=== PATIENT | female | born 1965 | race Caucasian/White ===

== ENCOUNTER 2018-02-16 06:52 | Day surgery (SDC) | payer OTHER ==
[2018-02-16] MEDS ORDERED: NS 1,000 ML IV (07:00)
[2018-02-16] MEDS ORDERED: PROPOFOL 200 MG/20 ML VIAL As Ordered ×3 (08:11)
[2018-02-16] MEDS ORDERED: LIDOCAINE 2% INJ 100 MG/5 ML SDV (FOR ANES.) As Ordered ×2 (08:11)
== END 2018-02-16 08:38 | disposition home or self-care (01) ==
LOC: M OPP 06:52
DX: Z12.11 Encounter for screening for malignant neoplasm of colon (principal); K64.0 First degree hemorrhoids; K57.30 Diverticulosis of large intestine without perforation or abscess without bleeding; Z98.0 Intestinal bypass and anastomosis status; I10 Essential (primary) hypertension; E11.9 Type 2 diabetes mellitus without complications; K57.32 Diverticulitis of large intestine without perforation or abscess without bleeding; F41.9 Anxiety disorder, unspecified; J45.909 Unspecified asthma, uncomplicated; R06.83 Snoring; Z87.19 Personal history of other diseases of the digestive system; Z79.84 Long term (current) use of oral hypoglycemic drugs; Z79.899 Other long term (current) drug therapy
CPT/HCPCS: G0121

== ENCOUNTER → 2019-01-03 | Outpatient (REF) | payer OTHER ==
[~2019-01-03] MED LIST: /THIA10TA OR; ALBU83IN INH; ASPI81TA45 OR; ATEN100T PO; GLUC500T OR; GLYB1TAB29 OR; JANU100T PO; KEFL500C OR; LEXA1TAB PO; LOPR50TA OR; LOSA50TA5 PO; METF10004 PO; PRIN10TA OR; TYLENOL PM; XANA0.5T PO; ZOCO20TA OR
[2019-01-03 11:16] LABS: BASO # 0.1 10^3/uL (0.0-0.2); BASO % 0.7 % (0.0-1.0); EOS # 0.1 10^3/uL (0.0-0.50); HEMATOCRIT 42.1 % (36.0-47.0); HEMOGLOBIN 13.9 g/dl (12.0-15.5); LYMPH # 2.2 10^3/uL (1.5-4.5); LYMPH % 23.6 % (24.0-44.0); MEAN CORPUSCULAR HEMOGLOBIN 33.3 pg (27.0-33.0); MONO # 0.4 10^3/uL (0.0-0.8); MONO % 4.2 % (0.0-5.0); NEUTROPHILS # 6.5 10^3/uL (1.8-7.7); NEUTROPHILS % 70.1 % (36.0-66.0); PLATELET COUNT, AUTOMATED 185 10^3/uL (150-450); RED BLOOD COUNT 4.17 10^6/uL (4.00-5.40); WHITE BLOOD COUNT 9.2 10^3/uL (4.0-10.0)
[2019-01-03 11:44] LABS: ALBUMIN 3.2 GM/DL (3.2-5.2); ALT/SGPT 53 U/L (12-78); BILIRUBIN,TOTAL 0.5 MG/DL (0.2-1.0); BLOOD UREA NITROGEN 23 MG/DL (7-18); CALCIUM LEVEL 9.6 MG/DL (8.5-10.1); CARBON DIOXIDE LEVEL 30 MEQ/L (21-32); CHLORIDE LEVEL 92 MEQ/L (98-107); CHOLESTEROL LEVEL 186 MG/DL (<200); CHOLESTEROL RISK RATIO 3.381 (<5); CREATININE FOR GFR 0.93 MG/DL (0.55-1.30); GLOMERULAR FILTRATION RATE > 60.0 (>51); GLUCOSE, FASTING 301 MG/DL (70-100); HDL CHOLESTEROL 55 MG/DL (>40); LDL CHOLESTEROL 100 MG/DL (<100); NON-HDL-C 131 MG/DL; POTASSIUM SERUM 4.2 MEQ/L (3.5-5.1); SODIUM LEVEL 134 MEQ/L (136-145); TOTAL PROTEIN 7.1 GM/DL (6.4-8.2); TRIGLYCERIDES LEVEL 155 MG/DL (<150)
[2019-01-03 12:00] LABS: MALB URINE SIEMENS 20.5 MG/L; MAU/CREAT RATIO 8.3 MCG/MG (0.0-30.0)
[2019-01-03 12:29] LABS: HEMOGLOBIN A1c 10.4 %
== END ==
LOC: M SFHCLERA 08:38
PROVIDERS: ATTEND Nurse Practitioner Family
DX: E11.9 Type 2 diabetes mellitus without complications (principal); I10 Essential (primary) hypertension; Z13.220 Encounter for screening for lipoid disorders

== ENCOUNTER → 2020-08-25 | Outpatient (CLI) | payer SELFPAY | LOC: M LABSMTC 08:17 | PROVIDERS: ATTEND Pediatrics | DX: Z20.828 Contact with and (suspected) exposure to other viral communicable diseases (principal) ==

== ENCOUNTER → 2020-09-20 | Outpatient (CLI) | payer OTHER ==
[2020-09-20 16:30] LABS: BASO # 0.1 10^3/uL (0.0-0.2); BASO % 0.5 % (0.0-1.0); EOS # 0.3 10^3/uL (0.0-0.5); EOS % 2.6 % (0.0-3.0); HEMATOCRIT 37.2 % (36.0-47.0); HEMOGLOBIN 11.7 g/dl (12.0-15.5); LYMPH # 2.8 10^3/uL (1.5-5.0); LYMPH % 24.6 % (24.0-44.0); MEAN CORPUSCULAR HEMOGLOBIN 30.5 pg (27.0-33.0); MEAN CORPUSCULAR HGB CONC 31.5 g/dl (32.0-36.5); MEAN CORPUSCULAR VOLUME 97.1 fl (80.0-96.0); MONO # 0.4 10^3/uL (0.0-0.8); MONO % 3.6 % (0.0-5.0); NEUTROPHILS # 7.8 10^3/uL (1.5-8.5); NEUTROPHILS % 67.8 % (36.0-66.0); PLATELET COUNT, AUTOMATED 269 10^3/uL (150-450); RED BLOOD COUNT 3.83 10^6/uL (4.00-5.40); WHITE BLOOD COUNT 11.5 10^3/uL (4.0-10.0)
[2020-09-20 16:48] LABS: HEMOGLOBIN A1c 8.2 %
[2020-09-20 17:08] LABS: CALCIUM LEVEL 9.2 MG/DL (8.5-10.1); CHOLESTEROL RISK RATIO 3.977 (<5); CREATININE FOR GFR 1.42 MG/DL (0.55-1.30); GLOMERULAR FILTRATION RATE 41.2 (>51); POTASSIUM SERUM 3.9 MEQ/L (3.5-5.1)
[2020-09-20 17:25] LABS: AMPHETAMINES URINE REFLEX NEGATIVE (NEGATIVE); BARBITURATES URINE REFLEX NEGATIVE (NEGATIVE); CANNABINOIDS URINE REFLEX NEGATIVE (NEGATIVE); COCAINE METABOLITE URINE REFLE NEGATIVE (NEGATIVE); MALB URINE SIEMENS 27.4 MG/L; MAU/CREAT RATIO 11.4 MCG/MG (0.0-30.0); METHADONE URINE REFLEX NEGATIVE (NEGATIVE); OPIATES URINE REFLEX NEGATIVE (NEGATIVE); PHENCYCLIDINE URINE REFLEX NEGATIVE (NEGATIVE)
[2020-09-20 18:33] LABS: BENZODIAZEPINES URINE REFLEX PENDING CONFIRMATION (NEGATIVE)
[2020-09-24 23:16] LABS: Benzodiazepines Positive (.); GC OH-Alprazola 714 ng/mL (Cutoff=300); OH-Alprazolam Positive (.)
== END ==
LOC: M LAB 15:01
PROVIDERS: ATTEND Family Medicine
DX: E11.9 Type 2 diabetes mellitus without complications (principal)
CPT/HCPCS: 36415; 80048; 80061; 80307; 82043; 83036; 85025; G0480

== ENCOUNTER → 2020-09-20 | Outpatient (CLI) | payer OTHER | LOC: M LAB 15:06 | PROVIDERS: ATTEND Nurse Practitioner Family | DX: G47.00 Insomnia, unspecified (principal) ==

== ENCOUNTER → 2020-12-23 | Outpatient (REF) | payer OTHER ==
[~2020-12-23] MED LIST changes: +ALPR0.5T3 PO; +ATEN50TA2 PO; +CETI-24 PO; +CLIN150C15 PO; +COLA100C5 PO; +GLYB5TAB6 PO; +LOSA100T8 PO; +METF500T13 PO; +MONT10TA10 PO; +PERC5TAB12 PO; +STEG15TA PO
== END ==
LOC: M SFHCLERA 10:15
PROVIDERS: ATTEND Nurse Practitioner Family
DX: L02.92 Furuncle, unspecified (principal)

== ENCOUNTER 2021-01-01 13:33 | Emergency (ER) | payer OTHER ==
[~2021-01-01] VITALS: Ht 157.5 cm; Wt 75.0 kg
[~2021-01-01 13:33] MED LIST changes: -ALPR0.5T3 PO; -ATEN50TA2 PO; -CETI-24 PO; -CLIN150C15 PO; -COLA100C5 PO; -GLYB5TAB6 PO; -LOSA100T8 PO; -METF500T13 PO; -MONT10TA10 PO; -PERC5TAB12 PO; -STEG15TA PO
[2021-01-01] MEDS ORDERED: IBUPROFEN 800 MG TAB PO ONE (14:20)
[2021-01-01] MEDS ORDERED: ACETAMINOPHEN 325 MG TAB PO ONE (14:20)
--- NOTE | 2021-01-01 14:40 | REP ---
INDICATION: low back pain after fall r/o compression fx. COMPARISON: None. TECHNIQUE: FIVE VIEWS FINDINGS: Five views of the lumbosacral spine show no acute fracture, dislocation or subluxation. The intervertebral disc spaces are symmetric and well maintained. There is no spondylolysis or spondylolisthesis. The pedicles are intact bilaterally and there is no destructive osseous lesion. THERE IS A GRADE 1 SUPERIOR ENDPLATE COMPRESSION OF T11 IMPRESSION: Unremarkable lumbosacral spine series. Grade 1 superior endplate compression deformity T11 the age of which cannot be determined by this exam. <Electronically signed by Silvio Cifuentes > 01/01/21 [id number]
[2021-01-01] MEDS ORDERED: oxyCODONE 5MG TAB PO ONE (15:05)
[2021-01-01] MEDS ORDERED: GLYB5TAB6 PO (15:50)
[2021-01-01] MEDS ORDERED: ALPR0.5T3 PO (15:50)
[2021-01-01] MEDS ORDERED: ATEN50TA2 PO (15:50)
[2021-01-01] MEDS ORDERED: METF500T13 PO (15:50)
[2021-01-01] MEDS ORDERED: LOSA100T8 PO (15:50)
[2021-01-01] MEDS ORDERED: CETI-24 PO (15:50)
[2021-01-01] MEDS ORDERED: MONT10TA10 PO (15:50)
[2021-01-01] MEDS ORDERED: LEXA1TAB PO (15:50)
[2021-01-01] MEDS ORDERED: STEG15TA PO (15:50)
[2021-01-01] MEDS ORDERED: CLIN150C15 PO (15:50)
[2021-01-01] MEDS ORDERED: PERC5TAB12 PO (15:56)
[2021-01-01] MEDS ORDERED: COLA100C5 PO (15:56)
--- NOTE | 2021-01-01 15:56 | REP ---
INDICATION: t11 fx, further eval. COMPARISON: Plain film study 01/01/2021. TECHNIQUE: Axial CT scans with multiplanar reformations of the thoracic spine are obtained. FINDINGS: At T11, there is a minimally loss of height and compression of the superior endplate. No significant retropulsion. No canal or foraminal narrowing. At the remaining levels, bridging osteophytes are seen on the right, no significant canal stenosis and no definite limiting osseous foraminal narrowing. IMPRESSION: Minimal compression at T11 without retropulsion or foraminal stenosis. No other compression deformities or malalignments. No significant canal stenosis or significant osseous foraminal stenosis. <Electronically signed by Kar Russell > 01/01/21 [id number]
[2021-01-01 16:12] VITALS: BP 114/57
== END 2021-01-01 16:42 | disposition home or self-care (01) ==
LOC: EDBD 13:33 → M ED 13:33
DX: S22.088A Other fracture of T11-T12 vertebra, initial encounter for closed fracture (principal); W18.39XA Other fall on same level, initial encounter; Y92.018 Other place in single-family (private) house as the place of occurrence of the external cause; Z79.899 Other long term (current) drug therapy

== ENCOUNTER 2021-08-13 03:20 | Emergency (ER) | payer MEDICAID, OTHER ==
[~2021-08-13] VITALS: Ht 160 cm; Wt 72.7 kg
[~2021-08-13 03:20] MED LIST changes: +ALPR0.5T3 PO; +ATEN50TA2 PO; +CETI-24 PO; +CLIN150C17 PO; +COLA100C5 PO; +GLYB5TAB6 PO; +LOSA100T8 PO; +METF500T13 PO; +MONT10TA97 PO; +PERC5TAB12 PO; +STEG15TA PO
[2021-08-13] MEDS ORDERED: SPIR50TA4 (07:03)
[2021-08-13] MEDS ORDERED: NS 1,000 ML IV ONE (07:15)
[2021-08-13 07:38] LABS: BASO # 0.1 10^3/uL (0.0-0.2); BASO % 0.5 % (0.0-1.0); EOS # 0.3 10^3/uL (0.0-0.5); EOS % 2.2 % (0.0-3.0); HEMATOCRIT 39.7 % (36.0-47.0); HEMOGLOBIN 13.2 g/dl (12.0-15.5); LYMPH # 1.5 10^3/uL (1.5-5.0); LYMPH % 10.1 % (24.0-44.0); MEAN CORPUSCULAR HEMOGLOBIN 31.2 pg (27.0-33.0); MEAN CORPUSCULAR HGB CONC 33.2 g/dl (32.0-36.5); MEAN CORPUSCULAR VOLUME 93.9 fl (80.0-96.0); MONO # 0.4 10^3/uL (0.0-0.8); MONO % 2.6 % (2.0-8.0); NEUTROPHILS # 12.7 10^3/uL (1.5-8.5); NEUTROPHILS % 83.4 % (36.0-66.0); PLATELET COUNT, AUTOMATED 284 10^3/uL (150-450); RED BLOOD COUNT 4.23 10^6/uL (4.00-5.40); WHITE BLOOD COUNT 15.2 10^3/uL (4.0-10.0)
[2021-08-13] MEDS ORDERED: GI COCKTAIL 50ML BTL(HYOSCYAMINE/MAALOX/LIDOCAINE VISCOUS)(1:3:1) PO ONE (07:40)
[2021-08-13 08:00] LABS: ALBUMIN 3.4 GM/DL (3.2-5.2); BILIRUBIN,DIRECT 0.2 MG/DL (0.0-0.2); BILIRUBIN,TOTAL 0.8 MG/DL (0.2-1.0); TOTAL PROTEIN 7.1 GM/DL (6.4-8.2)
[2021-08-13] MEDS ORDERED: PANTOPRAZOLE 40MG VIAL (C9113 PER 1) IV ONE (10:15)
[2021-08-13] MEDS ORDERED: ISOVUE-370 76% 100ML VIAL As Ordered ONE (10:38)
[2021-08-13 12:16] VITALS: BP 107/59
== END 2021-08-13 12:24 | disposition home or self-care (01) ==
LOC: M ED 03:20
DX: N17.9 Acute kidney failure, unspecified (principal); R18.8 Other ascites; K52.9 Noninfective gastroenteritis and colitis, unspecified; K42.9 Umbilical hernia without obstruction or gangrene; E11.9 Type 2 diabetes mellitus without complications; I10 Essential (primary) hypertension; J45.909 Unspecified asthma, uncomplicated; K58.0 Irritable bowel syndrome with diarrhea; Z79.899 Other long term (current) drug therapy; Z79.84 Long term (current) use of oral hypoglycemic drugs
CPT/HCPCS: 36415; 74170; 76705; 80047; 80076; 83690; 85025; 93005; 96361; 96374; 99284; C9113; Q9967

== ENCOUNTER → 2021-08-18 | Outpatient (CLI) | payer OTHER ==
[~2021-08-18] MED LIST changes: +MONT10TA10 PO; -MONT10TA97 PO; +SPIR50TA4
[2021-08-18 16:43] LABS: BASO # 0.1 10^3/uL (0.0-0.2); BASO % 0.4 % (0.0-1.0); EOS # 0.7 10^3/uL (0.0-0.5); EOS % 4.7 % (0.0-3.0); HEMATOCRIT 36.6 % (36.0-47.0); HEMOGLOBIN 11.7 g/dl (12.0-15.5); LYMPH % 21.3 % (24.0-44.0); MEAN CORPUSCULAR HEMOGLOBIN 30.8 pg (27.0-33.0); MEAN CORPUSCULAR VOLUME 96.3 fl (80.0-96.0); MONO # 0.7 10^3/uL (0.0-0.8); MONO % 5.2 % (2.0-8.0); NEUTROPHILS # 9.5 10^3/uL (1.5-8.5); NEUTROPHILS % 67.1 % (36.0-66.0); PLATELET COUNT, AUTOMATED 260 10^3/uL (150-450); WHITE BLOOD COUNT 14.1 10^3/uL (4.0-10.0)
[2021-08-18 17:33] LABS: ALBUMIN 3.4 GM/DL (3.2-5.2); BILIRUBIN,TOTAL 0.4 MG/DL (0.2-1.0); CALCIUM LEVEL 9.9 MG/DL (8.5-10.1); CREATININE FOR GFR 1.59 MG/DL (0.55-1.30); GLOMERULAR FILTRATION RATE 36.2 (>51); POTASSIUM SERUM 4.3 MEQ/L (3.5-5.1); TOTAL PROTEIN 7.2 GM/DL (6.4-8.2)
== END ==
LOC: M WUC 14:57
PROVIDERS: ATTEND Physician Assistant Medical
DX: N17.9 Acute kidney failure, unspecified (principal); R18.8 Other ascites

== ENCOUNTER → 2021-09-09 | Outpatient (CLI) | payer OTHER ==
[~2021-09-09] MED LIST changes: -MONT10TA10 PO; +MONT10TA97 PO
[2021-09-09 18:55] LABS: BASO % 0.5 % (0.0-1.0); EOS # 0.3 10^3/uL (0.0-0.5); EOS % 3.4 % (0.0-3.0); HEMATOCRIT 38.4 % (36.0-47.0); LYMPH # 2.2 10^3/uL (1.5-5.0); LYMPH % 27.9 % (24.0-44.0); MEAN CORPUSCULAR HEMOGLOBIN 30.1 pg (27.0-33.0); MEAN CORPUSCULAR HGB CONC 31.3 g/dl (32.0-36.5); MEAN CORPUSCULAR VOLUME 96.2 fl (80.0-96.0); MONO # 0.5 10^3/uL (0.0-0.8); MONO % 6.3 % (2.0-8.0); NEUTROPHILS # 4.9 10^3/uL (1.5-8.5); NEUTROPHILS % 61.4 % (36.0-66.0); PLATELET COUNT, AUTOMATED 219 10^3/uL (150-450); RED BLOOD COUNT 3.99 10^6/uL (4.00-5.40)
[2021-09-09 19:05] LABS: ALT/SGPT 22 U/L (12-78); BILIRUBIN,TOTAL 0.5 MG/DL (0.2-1.0); BLOOD UREA NITROGEN 50 MG/DL (7-18); CARBON DIOXIDE LEVEL 27 MEQ/L (21-32); CHLORIDE LEVEL 103 MEQ/L (98-107); CREATININE FOR GFR 1.45 MG/DL (0.55-1.30); GLOMERULAR FILTRATION RATE 40.1 (>51); GLUCOSE, FASTING 205 MG/DL (70-100); SODIUM LEVEL 135 MEQ/L (136-145); TOTAL PROTEIN 7.9 GM/DL (6.4-8.2)
[2021-09-09 19:12] LABS: HEMOGLOBIN A1c 7.4 %
== END ==
LOC: M WUC 15:50
PROVIDERS: ATTEND Nurse Practitioner Family
DX: N17.9 Acute kidney failure, unspecified (principal); E11.9 Type 2 diabetes mellitus without complications; K52.9 Noninfective gastroenteritis and colitis, unspecified

== ENCOUNTER → 2021-10-09 | Outpatient (REF) | payer OTHER | LOC: M LAB REF 16:55 | PROVIDERS: ATTEND Nurse Practitioner Family | DX: L73.2 Hidradenitis suppurativa (principal) ==

== ENCOUNTER → 2021-12-01 | Outpatient (CLI) | payer OTHER ==
[2021-12-01 12:56] LABS: PLATELET COUNT, AUTOMATED 235 10^3/uL (150-450)
[2021-12-01 13:07] LABS: INR 1.02; PROTHROMBIN TIME 13.8 SECONDS (12.7-14.5)
[2021-12-01 13:08] LABS: PARTIAL THROMBOPLASTIN TIME 33.3 SECONDS (25.9-37.0)
[2021-12-01 13:57] LABS: ALBUMIN 3.6 GM/DL (3.2-5.2); ALT/SGPT 28 U/L (12-78); BILIRUBIN,DIRECT 0.1 MG/DL (0.0-0.2); BILIRUBIN,TOTAL 0.6 MG/DL (0.2-1.0); HEPATITIS B SURFACE ANTIGEN NEGATIVE (NEGATIVE); IRON (FE) 44 UG/DL (50-170); PERCENT SATURATION 13.8 % (13.2-45.0); TOTAL IRON BINDING CAPACITY 319 UG/DL (250-450); TOTAL PROTEIN 7.4 GM/DL (6.4-8.2)
[2021-12-01 14:07] LABS: HEPATITIS C VIRUS ABY INDEX 0.2 INDEX (<0.8)
== END ==
LOC: M WUC 08:36
PROVIDERS: ATTEND Internal Medicine Gastroenterology
DX: R94.5 Abnormal results of liver function studies (principal)

== ENCOUNTER → 2021-12-05 | Outpatient (CLI) | payer OTHER ==
[2021-12-05 20:18] LABS: HEMATOCRIT 35.8 % (36.0-47.0); HEMOGLOBIN 11.4 g/dl (12.0-15.5); MEAN CORPUSCULAR HEMOGLOBIN 29.8 pg (27.0-33.0); MEAN CORPUSCULAR HGB CONC 31.8 g/dl (32.0-36.5); MEAN CORPUSCULAR VOLUME 93.5 fl (80.0-96.0); PLATELET COUNT, AUTOMATED 271 10^3/uL (150-450); RED BLOOD COUNT 3.83 10^6/uL (4.00-5.40); WHITE BLOOD COUNT 11.1 10^3/uL (4.0-10.0)
[2021-12-05 20:41] LABS: ALBUMIN 3.9 GM/DL (3.2-5.2); ALT/SGPT 23 U/L (12-78); BILIRUBIN,TOTAL 0.4 MG/DL (0.2-1.0); BLOOD UREA NITROGEN 51 MG/DL (7-18); CALCIUM LEVEL 9.8 MG/DL (8.5-10.1); CARBON DIOXIDE LEVEL 31 MEQ/L (21-32); CHLORIDE LEVEL 102 MEQ/L (98-107); GLOMERULAR FILTRATION RATE 31.2 (>51); GLUCOSE, FASTING 187 MG/DL (70-100); POTASSIUM SERUM 4.3 MEQ/L (3.5-5.1); SODIUM LEVEL 138 MEQ/L (136-145); TOTAL PROTEIN 7.5 GM/DL (6.4-8.2)
[2021-12-05 21:05] LABS: HEPATITIS B SURFACE ANTIGEN NEGATIVE (NEGATIVE)
[2021-12-05 21:31] LABS: HEPATITIS C VIRUS ABY INDEX 0.2 INDEX (<0.8)
[2021-12-05 21:33] LABS: HEPATITIS B CORE ANTIBODY IGM NEGATIVE (NEGATIVE); HIV 1&2 SCREEN CENTAUR NEGATIVE (NEGATIVE)
[2021-12-06 17:14] LABS: HEPATITIS B SURFACE ANTIBODY POSITIVE (POSITIVE)
== END ==
LOC: M WUC 15:21
PROVIDERS: ATTEND Nurse Practitioner Family
DX: L73.2 Hidradenitis suppurativa (principal); Z79.899 Other long term (current) drug therapy

== ENCOUNTER → 2021-12-18 | Outpatient (CLI) | payer OTHER | LOC: M RAD 07:24 | PROVIDERS: ATTEND Internal Medicine Gastroenterology | DX: R94.5 Abnormal results of liver function studies (principal) ==

== ENCOUNTER → 2022-01-07 | Outpatient (CLI) | payer OTHER ==
[~2022-01-07] MED LIST changes: +B-1100TA2 PO; +FOLI1TAB11 PO; +HUMI80KI SC; +TIZA10TA PO; +VITMTA PO
== END ==
LOC: M LABSMTC 10:35
PROVIDERS: ATTEND Anesthesiology
DX: Z01.812 Encounter for preprocedural laboratory examination (principal); Z11.52 Encounter for screening for COVID-19

== ENCOUNTER 2022-01-12 09:45 | Day surgery (SDC) | payer OTHER ==
[~2022-01-12] VITALS: Ht 157.5 cm; Wt 80.0 kg
[~2022-01-12 09:45] MED LIST changes: +NS 1,000 ML IV ONE
[2022-01-12 12:11] VITALS: BP 118/66
[2022-01-12] MEDS ORDERED: fentaNYL 100 MCG/2 ML INJECTION As Ordered ONE (12:28)
== END 2022-01-12 12:13 | disposition home or self-care (01) ==
LOC: M OPP 09:45
PROVIDERS: ATTEND Internal Medicine Gastroenterology
DX: K21.00 Gastro-esophageal reflux disease with esophagitis, without bleeding (principal); K29.70 Gastritis, unspecified, without bleeding; K74.60 Unspecified cirrhosis of liver; E11.9 Type 2 diabetes mellitus without complications; N18.2 Chronic kidney disease, stage 2 (mild); I12.9 Hypertensive chronic kidney disease with stage 1 through stage 4 chronic kidney disease, or unspecified chronic kidney disease; Z79.899 Other long term (current) drug therapy; Z90.49 Acquired absence of other specified parts of digestive tract; Z87.19 Personal history of other diseases of the digestive system
CPT/HCPCS: 43239; 88305; J3010

== ENCOUNTER → 2022-01-28 | Outpatient (CLI) | payer OTHER ==
[~2022-01-28] MED LIST changes: -NS 1,000 ML IV ONE
[2022-01-28 16:44] LABS: HEMOGLOBIN A1c 7.3 %
== END ==
LOC: M WUC 13:58
PROVIDERS: ATTEND Student in an Organized Health Care Education/Training Program
DX: E11.9 Type 2 diabetes mellitus without complications (principal)

== ENCOUNTER → 2022-03-02 | Outpatient (CLI) | payer OTHER ==
[~2022-03-02] MED LIST changes: +ALBU2.5V10 INH; -ALBU83IN INH
[2022-03-02 13:23] LABS: HEMATOCRIT 35.8 % (36.0-47.0); HEMOGLOBIN 11.1 g/dl (12.0-15.5); MEAN CORPUSCULAR HEMOGLOBIN 27.2 pg (27.0-33.0); MEAN CORPUSCULAR VOLUME 87.7 fl (80.0-96.0); PLATELET COUNT, AUTOMATED 401 10^3/uL (150-450); RED BLOOD COUNT 4.08 10^6/uL (4.00-5.40); WHITE BLOOD COUNT 9.6 10^3/uL (4.0-10.0)
[2022-03-02 13:52] LABS: CALCIUM LEVEL 9.3 MG/DL (8.5-10.1); CREATININE FOR GFR 2.37 MG/DL (0.55-1.30); GLOMERULAR FILTRATION RATE 22.7 (>51)
[2022-03-02 13:53] LABS: ALBUMIN 3.1 GM/DL (3.2-5.2); BILIRUBIN,TOTAL 0.2 MG/DL (0.2-1.0); TOTAL PROTEIN 7.2 GM/DL (6.4-8.2)
== END ==
LOC: M LAB 12:41
PROVIDERS: ATTEND Student in an Organized Health Care Education/Training Program
DX: L73.2 Hidradenitis suppurativa (principal)

== ENCOUNTER → 2022-03-02 | Outpatient (CLI) | payer OTHER ==
[2022-03-02 13:23] LABS: BASO # 0.1 10^3/uL (0.0-0.2); BASO % 0.9 % (0.0-1.0); EOS # 0.2 10^3/uL (0.0-0.5); EOS % 2.4 % (0.0-3.0); HEMATOCRIT 36.2 % (36.0-47.0); HEMOGLOBIN 11.1 g/dl (12.0-15.5); LYMPH # 2.3 10^3/uL (1.5-5.0); LYMPH % 24.4 % (24.0-44.0); MEAN CORPUSCULAR HEMOGLOBIN 26.9 pg (27.0-33.0); MEAN CORPUSCULAR HGB CONC 30.7 g/dl (32.0-36.5); MEAN CORPUSCULAR VOLUME 87.7 fl (80.0-96.0); MONO # 0.4 10^3/uL (0.0-0.8); MONO % 4.5 % (2.0-8.0); NEUTROPHILS # 6.2 10^3/uL (1.5-8.5); NEUTROPHILS % 67.5 % (36.0-66.0); PLATELET COUNT, AUTOMATED 405 10^3/uL (150-450); RED BLOOD COUNT 4.13 10^6/uL (4.00-5.40); WHITE BLOOD COUNT 9.2 10^3/uL (4.0-10.0)
[2022-03-02 13:44] LABS: INR 1.1; PROTHROMBIN TIME 14.6 SECONDS (12.7-14.5)
[2022-03-02 13:45] LABS: PARTIAL THROMBOPLASTIN TIME 28.9 SECONDS (25.9-37.0)
[2022-03-02 13:52] LABS: ALT/SGPT 14 U/L (12-78); BILIRUBIN,DIRECT 0.1 MG/DL (0.0-0.2); BILIRUBIN,TOTAL 0.3 MG/DL (0.2-1.0); BLOOD UREA NITROGEN 37 MG/DL (7-18); CALCIUM LEVEL 9.7 MG/DL (8.5-10.1); CARBON DIOXIDE LEVEL 27 MEQ/L (21-32); CHLORIDE LEVEL 102 MEQ/L (98-107); CREATININE FOR GFR 2.36 MG/DL (0.55-1.30); GLOMERULAR FILTRATION RATE 22.8 (>51); GLUCOSE, FASTING 251 MG/DL (70-100); POTASSIUM SERUM 4.2 MEQ/L (3.5-5.1); SODIUM LEVEL 139 MEQ/L (136-145); TOTAL PROTEIN 7.2 GM/DL (6.4-8.2)
== END ==
LOC: M LAB 12:49
PROVIDERS: ATTEND Internal Medicine Gastroenterology
DX: R93.5 Abnormal findings on diagnostic imaging of other abdominal regions, including retroperitoneum (principal)

== ENCOUNTER → 2022-03-12 | Outpatient (CLI) | payer OTHER ==
[~2022-03-12] MED LIST changes: +ESCI5SOL3 PO; +GASTROGRAFIN SOLUTION 30ML (Q9963) As Ordered ONE; +PROTPAK PO; +SIME80TA16 PO; +STEG5TAB PO
== END ==
LOC: M RAD 11:31
PROVIDERS: ATTEND Internal Medicine Gastroenterology
DX: R93.5 Abnormal findings on diagnostic imaging of other abdominal regions, including retroperitoneum (principal)
CPT/HCPCS: 74176; Q9963

== ENCOUNTER → 2022-03-20 | Outpatient (CLI) | payer OTHER ==
[~2022-03-20] MED LIST changes: -GASTROGRAFIN SOLUTION 30ML (Q9963) As Ordered ONE
[2022-03-20 12:57] LABS: SOURCE, BODY FLUID ASCITES
[2022-03-20 12:58] LABS: APPEARANCE, BODY FLUID CLOUDY (CLEAR); ASCITES FL COLOR AMBER (COLORLESS)
[2022-03-20 13:43] VITALS: BP 108/59
[2022-03-20 13:44] LABS: SOURCE, BODY FLUID ALBUMIN ASCITES; SOURCE, BODY FLUID TOT PROTEIN ASCITES; TOTAL PROTEIN, BODY FLUID 6.4 G/DL (NOT ESTABLISHED)
== END ==
LOC: M IRPRO 11:47
PROVIDERS: ATTEND Internal Medicine Gastroenterology
DX: R93.5 Abnormal findings on diagnostic imaging of other abdominal regions, including retroperitoneum (principal)

== ENCOUNTER → 2022-04-05 | Outpatient (CLI) | payer OTHER ==
[~2022-04-05] MED LIST changes: +ALBU2.5V10 NEB; +CLIN1GEL22; +FLON1SPR NARES; +HUMI80KI; +HYDR-3715 PO; +HYDR-4431 PO; +TUMS500C PO
== END ==
LOC: M LABSMTC 10:55
PROVIDERS: ATTEND Anesthesiology
DX: Z11.52 Encounter for screening for COVID-19 (principal); Z20.822 Contact with and (suspected) exposure to COVID-19

== ENCOUNTER → 2022-04-06 | Outpatient (CLI) | payer OTHER ==
[2022-04-07 11:13] LABS: CA 125 160.5 U/ML (<30.2); CA19-9 TUMOR MARKER,CARBOHYDRA 25.5 U/ML (<35.0)
== END ==
LOC: M WUC 10:56
PROVIDERS: ATTEND Obstetrics & Gynecology
DX: R18.0 Malignant ascites (principal); Z12.4 Encounter for screening for malignant neoplasm of cervix; R87.619 Unspecified abnormal cytological findings in specimens from cervix uteri

== ENCOUNTER → 2022-04-17 | Outpatient (CLI) | payer OTHER ==
[2022-04-17 14:00] VITALS: BP 138/76
== END ==
LOC: M IRPRO 13:03
PROVIDERS: ATTEND Specialist
DX: R18.0 Malignant ascites (principal)

== ENCOUNTER → 2022-04-20 | Outpatient (CLI) | payer OTHER ==
[~2022-04-20] MED LIST changes: +ONDA-84 PO; +PROC10TA5 PO
== END ==
LOC: M WHC 10:59
PROVIDERS: ATTEND Obstetrics & Gynecology
DX: R18.0 Malignant ascites (principal); R93.89 Abnormal findings on diagnostic imaging of other specified body structures; N83.291 Other ovarian cyst, right side; N83.292 Other ovarian cyst, left side

== ENCOUNTER → 2022-04-28 | Outpatient (POV) | payer OTHER ==
[~2022-04-28] VITALS: Ht 154.9 cm; Wt 76.4 kg
[~2022-04-28] MED LIST changes: +LIDO1CRE42 TOP
[2022-04-28 14:00] VITALS: BP 149/79
== END ==
LOC: M IRPOV 14:00
PROVIDERS: ATTEND Radiology Diagnostic Radiology
DX: Z48.812 Encounter for surgical aftercare following surgery on the circulatory system (principal); Z45.2 Encounter for adjustment and management of vascular access device

== ENCOUNTER 2022-05-08 17:25 | Emergency (ER) | payer OTHER ==
[~2022-05-08] VITALS: Ht 157.5 cm; Wt 75.5 kg
[~2022-05-08 17:25] MED LIST changes: -GABA-282 PO; -MORP15TA2 PO; -OXYC1TAB23 PO; -SENN-80 PO; -ZOVI5OIN8 TOP
[2022-05-08] MEDS ORDERED: NS 1,000 ML IV ONE (19:35)
[2022-05-08] MEDS ORDERED: PROMETHAZINE 25MG/ML 1ML VIAL IV ONE (19:35)
[2022-05-08] MEDS ORDERED: MORPHINE 4 MG/ML 1ML VIAL/SYRINGE IV ONE (19:35)
[2022-05-08] MEDS ORDERED: ISOVUE-370 76% 100ML VIAL As Ordered ONE ×2 (19:38→20:03)
[2022-05-08 20:48] LABS: BASO % 0.2 % (0.0-1.0); EOS # 0.2 10^3/uL (0.0-0.5); EOS % 1.9 % (0.0-3.0); HEMATOCRIT 38.3 % (36.0-47.0); HEMOGLOBIN 11.8 g/dl (12.0-15.5); LYMPH # 2.3 10^3/uL (1.5-5.0); LYMPH % 27.8 % (24.0-44.0); MEAN CORPUSCULAR HEMOGLOBIN 26.5 pg (27.0-33.0); MEAN CORPUSCULAR HGB CONC 30.8 g/dl (32.0-36.5); MEAN CORPUSCULAR VOLUME 85.9 fl (80.0-96.0); MONO # 0.2 10^3/uL (0.0-0.8); MONO % 2.5 % (2.0-8.0); NEUTROPHILS # 5.6 10^3/uL (1.5-8.5); NEUTROPHILS % 67.1 % (36.0-66.0); PLATELET COUNT, AUTOMATED 300 10^3/uL (150-450); RED BLOOD COUNT 4.46 10^6/uL (4.00-5.40); WHITE BLOOD COUNT 8.4 10^3/uL (4.0-10.0)
[2022-05-08 21:22] LABS: RSV AMPLIFICATION NEGATIVE (NEGATIVE)
[2022-05-08 22:10] LABS: ALBUMIN 3.7 GM/DL (3.2-5.2); BILIRUBIN,DIRECT 0.3 MG/DL (0.0-0.2); BILIRUBIN,TOTAL 0.6 MG/DL (0.2-1.0); TOTAL PROTEIN 7.4 GM/DL (6.4-8.2)
[2022-05-08] MEDS ORDERED: OXYC1TAB23 PO (22:30)
[2022-05-08] MEDS ORDERED: OXYCODONE/APAP 5MG/325MG(HOME DOSE PACK) PO ONE (22:40)
[2022-05-08 22:58] VITALS: BP 151/79
== END 2022-05-08 23:05 | disposition home or self-care (01) ==
LOC: M ED 17:25
DX: R18.8 Other ascites (principal); K56.7 Ileus, unspecified; C56.9 Malignant neoplasm of unspecified ovary; E11.9 Type 2 diabetes mellitus without complications; I10 Essential (primary) hypertension; N18.30 Chronic kidney disease, stage 3 unspecified; J45.909 Unspecified asthma, uncomplicated; K21.9 Gastro-esophageal reflux disease without esophagitis; Z87.19 Personal history of other diseases of the digestive system; Z92.21 Personal history of antineoplastic chemotherapy; Z79.899 Other long term (current) drug therapy
CPT/HCPCS: 74177; 80047; 80076; 81000; 83605; 83690; 85025; 87631; 96374; 96375; 99284; J2270; J2550; Q9967

== ENCOUNTER → 2022-05-08 | Outpatient (CLI) | payer OTHER ==
[~2022-05-08] MED LIST changes: +CLAR10CA3 PO; +GABA-282 PO; +MORP15TA2 PO; +OXYC1TAB23 PO; +SENN-80 PO; +ZOVI5OIN8 TOP
== END ==
LOC: M WHC 10:29
PROVIDERS: ATTEND Obstetrics & Gynecology
DX: Z12.31 Encounter for screening mammogram for malignant neoplasm of breast (principal)

== ENCOUNTER → 2022-05-22 | Outpatient (CLI) | payer OTHER ==
[~2022-05-22] MED LIST changes: +GABA-282 PO; +LIDOCAINE 1% MDV 20ML VIAL As Ordered ONE; +MORP15TA2 PO; +OXYC1TAB23 PO; +ZOVI5OIN8 TOP
[2022-05-22 10:42] VITALS: BP 128/68
== END ==
LOC: M IRPRO 09:33
PROVIDERS: ATTEND Nurse Practitioner
DX: R18.8 Other ascites (principal)

== ENCOUNTER → 2022-05-25 | Outpatient (CLI) | payer OTHER ==
[~2022-05-25] MED LIST changes: -LIDOCAINE 1% MDV 20ML VIAL As Ordered ONE
== END ==
LOC: M LABSMTC 09:39
PROVIDERS: ATTEND Anesthesiology
DX: Z01.818 Encounter for other preprocedural examination (principal); Z11.52 Encounter for screening for COVID-19

== ENCOUNTER → 2022-05-26 | Outpatient (CLI) | payer OTHER ==
[~2022-05-26] VITALS: Ht 157.5 cm; Wt 72.6 kg
[~2022-05-26] MED LIST changes: +SENN-80 PO
[2022-05-26 15:56] VITALS: BP 108/60
== END ==
LOC: M PAL 14:25
PROVIDERS: ATTEND Nurse Practitioner Adult Health
DX: C48.2 Malignant neoplasm of peritoneum, unspecified (principal); R18.0 Malignant ascites; R10.30 Lower abdominal pain, unspecified; G62.9 Polyneuropathy, unspecified; G89.3 Neoplasm related pain (acute) (chronic); E11.9 Type 2 diabetes mellitus without complications; I10 Essential (primary) hypertension; B00.9 Herpesviral infection, unspecified; F41.1 Generalized anxiety disorder; F32.89 Other specified depressive episodes; R59.0 Localized enlarged lymph nodes; R53.83 Other fatigue; K57.92 Diverticulitis of intestine, part unspecified, without perforation or abscess without bleeding; Z79.891 Long term (current) use of opiate analgesic; Z79.51 Long term (current) use of inhaled steroids; Z92.21 Personal history of antineoplastic chemotherapy; Z79.810 Long term (current) use of selective estrogen receptor modulators (SERMs); Z51.5 Encounter for palliative care

== ENCOUNTER 2022-05-28 06:57 | Day surgery (SDC) | payer OTHER ==
[~2022-05-28] VITALS: Ht 157.5 cm; Wt 71.6 kg
[~2022-05-28 06:57] MED LIST changes: +NS 1,000 ML IV ONE; -SENN-80 PO
[2022-05-28] MEDS ORDERED: LIDOCAINE 2% MDV 20ML VIAL As Ordered ONE (08:13)
[2022-05-28] MEDS ORDERED: propofoL 200 MG/20 ML VIAL As Ordered ONE ×2 (08:13→08:18)
[2022-05-28 08:50] VITALS: BP 129/69
== END 2022-05-28 09:10 | disposition home or self-care (01) ==
LOC: M OPP 06:57
PROVIDERS: ATTEND Internal Medicine Gastroenterology
DX: K63.89 Other specified diseases of intestine (principal); K57.30 Diverticulosis of large intestine without perforation or abscess without bleeding; K64.4 Residual hemorrhoidal skin tags; K64.8 Other hemorrhoids; K56.699 Other intestinal obstruction unspecified as to partial versus complete obstruction; C48.2 Malignant neoplasm of peritoneum, unspecified; Z79.2 Long term (current) use of antibiotics; Z79.51 Long term (current) use of inhaled steroids; Z79.891 Long term (current) use of opiate analgesic; Z79.899 Other long term (current) drug therapy; E11.9 Type 2 diabetes mellitus without complications; I12.9 Hypertensive chronic kidney disease with stage 1 through stage 4 chronic kidney disease, or unspecified chronic kidney disease; N18.30 Chronic kidney disease, stage 3 unspecified; R18.8 Other ascites; L73.2 Hidradenitis suppurativa

== ENCOUNTER → 2022-06-02 | Outpatient (CLI) | payer OTHER ==
[~2022-06-02] VITALS: Ht 157.5 cm; Wt 157.6 kg
[~2022-06-02] MED LIST changes: -NS 1,000 ML IV ONE; +SENN-80 PO
[2022-06-02 08:37] VITALS: BP 5/2
== END ==
LOC: M PAL 08:23
PROVIDERS: ATTEND Nurse Practitioner Adult Health
DX: C45.1 Mesothelioma of peritoneum (principal); R18.0 Malignant ascites; G89.3 Neoplasm related pain (acute) (chronic); G89.29 Other chronic pain; M79.10 Myalgia, unspecified site; R53.83 Other fatigue; R11.0 Nausea; I10 Essential (primary) hypertension; E11.9 Type 2 diabetes mellitus without complications; Z92.21 Personal history of antineoplastic chemotherapy; Z79.899 Other long term (current) drug therapy; Z79.891 Long term (current) use of opiate analgesic; Z79.51 Long term (current) use of inhaled steroids; Z51.5 Encounter for palliative care

== ENCOUNTER → 2022-07-07 | Outpatient (CLI) | payer OTHER ==
[~2022-07-07] VITALS: Ht 160 cm; Wt 70.5 kg
[~2022-07-07] MED LIST changes: +OXYC10TA12 PO
[2022-07-07 08:41] VITALS: BP 114/67
== END ==
LOC: M PAL 08:17
PROVIDERS: ATTEND Nurse Practitioner Adult Health
DX: C48.2 Malignant neoplasm of peritoneum, unspecified (principal); R18.0 Malignant ascites; E11.9 Type 2 diabetes mellitus without complications; G89.3 Neoplasm related pain (acute) (chronic); M79.18 Myalgia, other site; R53.83 Other fatigue; R10.9 Unspecified abdominal pain; Z92.21 Personal history of antineoplastic chemotherapy; Z51.5 Encounter for palliative care; Z79.891 Long term (current) use of opiate analgesic; I10 Essential (primary) hypertension; Z79.899 Other long term (current) drug therapy; Z79.51 Long term (current) use of inhaled steroids

== ENCOUNTER → 2022-07-15 | Outpatient (CLI) | payer OTHER ==
[~2022-07-15] MED LIST changes: +POTA1TAB14 PO
[2022-07-15 10:05] VITALS: BP 121/68
== END ==
LOC: M IRPRO 09:15
PROVIDERS: ATTEND Nurse Practitioner Adult Health
DX: C48.2 Malignant neoplasm of peritoneum, unspecified (principal); J91.0 Malignant pleural effusion

== ENCOUNTER → 2022-07-21 | Outpatient (CLI) | payer OTHER | LOC: M RAD 10:26 | PROVIDERS: ATTEND Nurse Practitioner | DX: M79.604 Pain in right leg (principal) ==

== ENCOUNTER 2022-07-27 20:45 | Emergency (ER) | payer OTHER ==
[2022-07-27] MEDS ORDERED: PERCOCET 5MG/325MG TAB PO ONE (21:25)
[2022-07-27] MEDS ORDERED: MORPHINE 10 MG/ML 1ML VIAL IM ONE (22:30)
[2022-07-27 22:41] VITALS: BP 144/65
[2022-07-30] MEDS ORDERED: XANA0.5T PO (13:11)
== END 2022-07-27 23:21 | disposition home or self-care (01) ==
LOC: M ED 20:45 → EDBD 20:45 → M ED 23:21
DX: S42.211A Unspecified displaced fracture of surgical neck of right humerus, initial encounter for closed fracture (principal); W18.40XA Slipping, tripping and stumbling without falling, unspecified, initial encounter; Y92.099 Unspecified place in other non-institutional residence as the place of occurrence of the external cause; Y93.89 Activity, other specified; C56.9 Malignant neoplasm of unspecified ovary; E11.9 Type 2 diabetes mellitus without complications; I10 Essential (primary) hypertension; Z79.84 Long term (current) use of oral hypoglycemic drugs; Z79.899 Other long term (current) drug therapy
CPT/HCPCS: 73060; 96372; 99284; J2270

== ENCOUNTER → 2022-07-30 | Outpatient (CLI) | payer OTHER ==
[~2022-07-30] MED LIST changes: +PERC10TA26 PO
== END ==
LOC: M LABSMTC 09:44
PROVIDERS: ATTEND Anesthesiology
DX: Z01.812 Encounter for preprocedural laboratory examination (principal); Z11.52 Encounter for screening for COVID-19

== ENCOUNTER → 2022-07-30 | Outpatient (REF) | payer OTHER ==
[2022-07-30 10:22] LABS: BASO % 0.2 % (0.0-1.0); EOS % 0.2 % (0.0-3.0); HEMATOCRIT 28.2 % (36.0-47.0); HEMOGLOBIN 8.9 g/dl (12.0-15.5); LYMPH # 1.7 10^3/uL (1.5-5.0); MEAN CORPUSCULAR HEMOGLOBIN 30.9 pg (27.0-33.0); MEAN CORPUSCULAR HGB CONC 31.6 g/dl (32.0-36.5); MEAN CORPUSCULAR VOLUME 97.9 fl (80.0-96.0); MONO # 0.5 10^3/uL (0.0-0.8); MONO % 10.3 % (2.0-8.0); NEUTROPHILS # 2.3 10^3/uL (1.5-8.5); NEUTROPHILS % 50.9 % (36.0-66.0); PLATELET COUNT, AUTOMATED 166 10^3/uL (150-450); RED BLOOD COUNT 2.88 10^6/uL (4.00-5.40); WHITE BLOOD COUNT 4.6 10^3/uL (4.0-10.0)
[2022-07-30 12:12] LABS: ALBUMIN 2.9 G/DL (3.2-5.2); ALT/SGPT 8.99999 U/L (7.0-40); BILIRUBIN,TOTAL 0.4 MG/DL (0.3-1.2); BLOOD UREA NITROGEN 12 MG/DL (9-23); CALCIUM LEVEL 8.7 MG/DL (8.5-10.1); CARBON DIOXIDE LEVEL 24 MMOL/L (20-31); CHLORIDE LEVEL 106 MMOL/L (98-107); CREATININE FOR GFR 0.92 MG/DL (0.55-1.30); GLOMERULAR FILTRATION RATE > 60.0 (>51); GLUCOSE, FASTING 87 MG/DL (60-100); POTASSIUM SERUM 3.6 MMOL/L (3.5-5.1); SODIUM LEVEL 141 MMOL/L (136-145); TOTAL PROTEIN 5.5 G/DL (5.7-8.2)
== END ==
LOC: M LAB REF 08:29
PROVIDERS: ATTEND Orthopaedic Surgery Hand Surgery
DX: S42.202A Unspecified fracture of upper end of left humerus, initial encounter for closed fracture (principal); W18.30XA Fall on same level, unspecified, initial encounter; Y92.009 Unspecified place in unspecified non-institutional (private) residence as the place of occurrence of the external cause

== ENCOUNTER 2022-07-31 12:46 | Day surgery (SDC) | payer OTHER ==
[~2022-07-31] VITALS: Ht 157.5 cm; Wt 73.5 kg
[~2022-07-31 12:46] MED LIST changes: -PERC10TA26 PO
[2022-07-31] MEDS ORDERED: LR 1,000 ML IV SCH (13:20)
[2022-07-31] MEDS ORDERED: BUPIVACAINE/EPIN 0.25% 30 ML VIAL As Ordered ONE (16:43)
[2022-07-31] MEDS ORDERED: LIDOCAINE 2% 100MG/5ML SDV (FOR ANES.) As Ordered ONE (16:51)
[2022-07-31] MEDS ORDERED: propofoL 200 MG/20 ML VIAL As Ordered ONE (16:51)
[2022-07-31] MEDS ORDERED: dexameTHASONE 4 MG/ML 1ML VIAL (J1100 PER 1MG) As Ordered ONE (16:51)
[2022-07-31] MEDS ORDERED: KETOROLAC 60MG 2ML VIAL As Ordered ONE (16:51)
[2022-07-31] MEDS ORDERED: ONDANSETRON 4MG 2ML VIAL As Ordered ONE (16:51)
[2022-07-31] MEDS ORDERED: fentaNYL 100 MCG/2 ML INJECTION As Ordered ONE (16:52)
[2022-07-31] MEDS ORDERED: MIDAZOLAM INJ 2MG/2ML VIAL (J2250 PER 1MG) As Ordered ONE (16:52)
[2022-07-31] MEDS ORDERED: LIDOCAINE W/EPINEPHRINE 1% 20ML VIAL As Ordered ONE (16:59)
[2022-07-31] MEDS ORDERED: ceFAZolin 1GM VIAL (J0690 PER 500MG) As Ordered ONE (17:29)
[2022-07-31] MEDS ORDERED: PHENYLephrine 500MCG 5ML (100MCG/ML) SYRINGE As Ordered ONE (18:34)
[2022-07-31] MEDS ORDERED: ONDANSETRON 4MG 2ML VIAL IV PRN (18:55)
[2022-07-31] MEDS: fentaNYL 100 MCG/2 ML INJECTION IV PRN ×4 (18:58→19:14)
[2022-07-31] MEDS ORDERED: PERC10TA26 PO (19:04)
[2022-07-31] MEDS: oxyCODONE 5MG TAB PO PRN ×2 (19:12→20:00)
[2022-07-31] MEDS ORDERED: MORPHINE 2 MG/ML 1ML VIAL IV PRN (19:40)
[2022-07-31] MEDS ORDERED: HYDROMORPHONE HCL 0.5 MG/ 0.5 ML SYRINGE (J1170 PER 1) IV PRN (19:40)
[2022-07-31 20:15] VITALS: BP 131/67
== END 2022-07-31 20:40 | disposition home or self-care (01) ==
LOC: M SDC 12:46
PROVIDERS: ATTEND Orthopaedic Surgery Hand Surgery
DX: S42.211A Unspecified displaced fracture of surgical neck of right humerus, initial encounter for closed fracture (principal); W01.0XXA Fall on same level from slipping, tripping and stumbling without subsequent striking against object, initial encounter; C56.9 Malignant neoplasm of unspecified ovary; C48.2 Malignant neoplasm of peritoneum, unspecified; I12.9 Hypertensive chronic kidney disease with stage 1 through stage 4 chronic kidney disease, or unspecified chronic kidney disease; E11.22 Type 2 diabetes mellitus with diabetic chronic kidney disease; N18.30 Chronic kidney disease, stage 3 unspecified; K57.90 Diverticulosis of intestine, part unspecified, without perforation or abscess without bleeding; K76.0 Fatty (change of) liver, not elsewhere classified; J45.909 Unspecified asthma, uncomplicated; L73.2 Hidradenitis suppurativa; Z79.899 Other long term (current) drug therapy; Z79.891 Long term (current) use of opiate analgesic; Z79.84 Long term (current) use of oral hypoglycemic drugs
CPT/HCPCS: 23615; 76000; C1713; J0690; J1100; J1885; J2250; J2270; J2370; J2405; J3010

== ENCOUNTER → 2022-08-10 | Outpatient (CLI) | payer OTHER ==
[~2022-08-10] MED LIST changes: +PERC10TA26 PO
== END ==
LOC: M SOG 15:38
PROVIDERS: ATTEND Physician Assistant
DX: S42.201A Unspecified fracture of upper end of right humerus, initial encounter for closed fracture (principal); X58.XXXA Exposure to other specified factors, initial encounter; Y92.9 Unspecified place or not applicable; Y93.9 Activity, unspecified; Y99.9 Unspecified external cause status

== ENCOUNTER → 2022-08-12 | Outpatient (CLI) | payer OTHER ==
[~2022-08-12] MED LIST changes: +GASTROGRAFIN SOLUTION 30ML As Ordered ONE; +ISOVUE-370 76% 100ML VIAL As Ordered ONE
== END ==
LOC: M RAD 13:58
PROVIDERS: ATTEND Nurse Practitioner
DX: R22.42 Localized swelling, mass and lump, left lower limb (principal); C48.2 Malignant neoplasm of peritoneum, unspecified

== ENCOUNTER → 2022-08-20 | Outpatient (CLI) | payer OTHER ==
[~2022-08-20] VITALS: Ht 157.5 cm; Wt 74.9 kg
[~2022-08-20] MED LIST changes: +ACET-683 PO; -GASTROGRAFIN SOLUTION 30ML As Ordered ONE; -ISOVUE-370 76% 100ML VIAL As Ordered ONE; +OXYC-1 PO
[2022-08-20 08:55] VITALS: BP 112/67
== END ==
LOC: M PAL 08:46
PROVIDERS: ATTEND Nurse Practitioner Adult Health
DX: C48.2 Malignant neoplasm of peritoneum, unspecified (principal); R18.0 Malignant ascites; Z51.5 Encounter for palliative care; G72.0 Drug-induced myopathy; Z79.891 Long term (current) use of opiate analgesic; Z79.899 Other long term (current) drug therapy; I10 Essential (primary) hypertension; E11.9 Type 2 diabetes mellitus without complications

== ENCOUNTER → 2022-08-31 | Outpatient (CLI) | payer OTHER | LOC: M SOG 08:41 | PROVIDERS: ATTEND Orthopaedic Surgery Hand Surgery | DX: S42.221D 2-part displaced fracture of surgical neck of right humerus, subsequent encounter for fracture with routine healing (principal); W18.30XD Fall on same level, unspecified, subsequent encounter ==

== ENCOUNTER → 2022-09-29 | Outpatient (CLI) | payer OTHER ==
[~2022-09-29] VITALS: Ht 160 cm; Wt 71.3 kg
[~2022-09-29] MED LIST changes: +DULC10SU2 PR; +MIRA3350 PO; +OXYC-404 PO
[2022-09-29 10:48] VITALS: BP 104/70
== END ==
LOC: M PAL 10:41
PROVIDERS: ATTEND Nurse Practitioner Adult Health
DX: C48.2 Malignant neoplasm of peritoneum, unspecified (principal); R18.0 Malignant ascites; Z51.5 Encounter for palliative care; E11.9 Type 2 diabetes mellitus without complications; G89.3 Neoplasm related pain (acute) (chronic); G72.0 Drug-induced myopathy; K59.00 Constipation, unspecified; Z79.891 Long term (current) use of opiate analgesic; Z79.899 Other long term (current) drug therapy

== ENCOUNTER 2022-10-20 08:53 | Outpatient (RCR) | payer OTHER ==
[~2022-10-20 08:53] MED LIST changes: +MORP30TASA PO; -OXYC-404 PO; +OXYC20TA2 PO; +OXYC20TA64 PO
[2022-11-03] MEDS ORDERED: GABA-282 PO (09:43)
[2022-11-10] MEDS ORDERED: MORP30TASA PO (14:57)
[2022-11-11] MEDS ORDERED: MORP30TASA PO (07:17)
[2022-11-11] MEDS ORDERED: OXYC20TA2 PO (07:17)
== END 2022-11-10 ==
LOC: M PT 08:53
PROVIDERS: ATTEND Orthopaedic Surgery Hand Surgery
DX: S42.201A Unspecified fracture of upper end of right humerus, initial encounter for closed fracture (principal)

== ENCOUNTER → 2022-10-22 | Outpatient (CLI) | payer OTHER ==
[~2022-10-22] MED LIST changes: +OXYC-404 PO; -OXYC20TA64 PO
== END ==
LOC: M SOG 08:09
PROVIDERS: ATTEND Physician Assistant
DX: S42.221D 2-part displaced fracture of surgical neck of right humerus, subsequent encounter for fracture with routine healing (principal); Z98.890 Other specified postprocedural states

== ENCOUNTER → 2022-10-28 | Outpatient (CLI) | payer OTHER ==
[~2022-10-28] VITALS: Ht 157.5 cm; Wt 74.1 kg
[2022-10-28 11:25] VITALS: BP 109/67
== END ==
LOC: M PAL 11:21
PROVIDERS: ATTEND Nurse Practitioner Adult Health
DX: C48.2 Malignant neoplasm of peritoneum, unspecified (principal); Z51.5 Encounter for palliative care; R18.0 Malignant ascites; Z92.21 Personal history of antineoplastic chemotherapy; I10 Essential (primary) hypertension; E11.9 Type 2 diabetes mellitus without complications; G89.3 Neoplasm related pain (acute) (chronic); G72.0 Drug-induced myopathy; Z79.891 Long term (current) use of opiate analgesic; Z79.899 Other long term (current) drug therapy; K59.00 Constipation, unspecified

== ENCOUNTER → 2022-11-12 | Outpatient (CLI) | payer OTHER ==
[~2022-11-12] MED LIST changes: +LIDOCAINE 1% MDV 20ML VIAL As Ordered ONE; -OXYC-404 PO; +OXYC20TA64 PO
[2022-11-12 11:03] VITALS: BP 120/60
== END ==
LOC: M IRPRO 10:19
PROVIDERS: ATTEND Specialist
DX: R18.8 Other ascites (principal)

== ENCOUNTER → 2022-12-29 | Outpatient (CLI) | payer OTHER ==
[~2022-12-29] MED LIST changes: +DEXA4TA PO; +FLUT50SP17 INH; -LIDOCAINE 1% MDV 20ML VIAL As Ordered ONE; +SENN-186 PO; -SENN-80 PO
== END ==
LOC: M RAD 11:46
PROVIDERS: ATTEND Nurse Practitioner
DX: M79.604 Pain in right leg (principal)

== ENCOUNTER → 2022-12-29 | Outpatient (CLI) | payer OTHER ==
[~2022-12-29] VITALS: Ht 160 cm; Wt 66.0 kg
[2022-12-29 08:13] VITALS: BP 80/58
== END ==
LOC: M PAL 08:05
PROVIDERS: ATTEND Nurse Practitioner Adult Health
DX: C48.2 Malignant neoplasm of peritoneum, unspecified (principal); Z51.5 Encounter for palliative care; Z92.21 Personal history of antineoplastic chemotherapy; I10 Essential (primary) hypertension; E11.9 Type 2 diabetes mellitus without complications; R18.0 Malignant ascites; G89.3 Neoplasm related pain (acute) (chronic); G72.0 Drug-induced myopathy; K59.00 Constipation, unspecified; Z79.891 Long term (current) use of opiate analgesic; Z79.899 Other long term (current) drug therapy

== ENCOUNTER → 2023-02-09 | Outpatient (CLI) | payer OTHER ==
[~2023-02-09] VITALS: Ht 157.5 cm; Wt 68.5 kg
[~2023-02-09] MED LIST changes: +POTA-298 PO; -POTA1TAB14 PO
[2023-02-09 08:25] VITALS: BP 103/62
== END ==
LOC: M PAL 08:20
PROVIDERS: ATTEND Nurse Practitioner Adult Health
DX: C48.2 Malignant neoplasm of peritoneum, unspecified (principal); R18.0 Malignant ascites; Z92.21 Personal history of antineoplastic chemotherapy; Z51.5 Encounter for palliative care; G89.3 Neoplasm related pain (acute) (chronic); Z79.891 Long term (current) use of opiate analgesic; M79.10 Myalgia, unspecified site; K59.00 Constipation, unspecified; Z79.899 Other long term (current) drug therapy; Z79.52 Long term (current) use of systemic steroids; Z79.84 Long term (current) use of oral hypoglycemic drugs; R68.2 Dry mouth, unspecified

== ENCOUNTER → 2023-02-26 | Outpatient (CLI) | payer OTHER ==
[~2023-02-26] MED LIST changes: +GASTROGRAFIN SOLUTION 30ML As Ordered ONE; +ISOVUE-370 76% 100ML VIAL As Ordered ONE
== END ==
LOC: M RAD 13:45
PROVIDERS: ATTEND Nurse Practitioner
DX: C48.2 Malignant neoplasm of peritoneum, unspecified (principal)
CPT/HCPCS: 74177; Q9963; Q9967

== ENCOUNTER → 2023-04-08 | Outpatient (CLI) | payer OTHER ==
[~2023-04-08] MED LIST changes: -GASTROGRAFIN SOLUTION 30ML As Ordered ONE; -ISOVUE-370 76% 100ML VIAL As Ordered ONE; -LIDO1CRE42 TOP; +LIDO30CR18 TOP
== END ==
LOC: M PAL 08:05
PROVIDERS: ATTEND Nurse Practitioner Adult Health
DX: G62.0 Drug-induced polyneuropathy (principal); Z79.891 Long term (current) use of opiate analgesic; Z51.5 Encounter for palliative care; R18.0 Malignant ascites; Z79.52 Long term (current) use of systemic steroids; Z79.899 Other long term (current) drug therapy

== ENCOUNTER → 2023-04-28 | Outpatient (CLI) | payer OTHER ==
[~2023-04-28] VITALS: Ht 157.5 cm; Wt 65.5 kg
[~2023-04-28] MED LIST changes: +NEUR300C PO
[2023-04-28 12:10] VITALS: BP 120/64; TEMP 96.6; O2SAT 98
== END ==
LOC: M PAL 12:05
PROVIDERS: ATTEND Nurse Practitioner Adult Health
DX: C48.2 Malignant neoplasm of peritoneum, unspecified (principal); R18.0 Malignant ascites; G47.00 Insomnia, unspecified; G62.0 Drug-induced polyneuropathy; R63.0 Anorexia; Z79.51 Long term (current) use of inhaled steroids; Z79.52 Long term (current) use of systemic steroids; Z79.84 Long term (current) use of oral hypoglycemic drugs; Z79.891 Long term (current) use of opiate analgesic; Z79.899 Other long term (current) drug therapy; Z92.21 Personal history of antineoplastic chemotherapy

== ENCOUNTER → 2023-07-21 | Outpatient (CLI) | payer OTHER ==
[~2023-07-21] MED LIST changes: +ATIV1TAB10 PO; +CLON0.1D3 TD; +DILT120C31 PO; +GABA-284 PO; +HYDR-3910 PO; +HYDR-643 PO; +KEPP1TAB PO; +MIRT1TAB15 PO; +OXYC-517 PO; +OXYC1SOL3 PO; +OXYC30TA PO; +SENN-83
== END ==
LOC: M IRPRO 09:50
PROVIDERS: ATTEND Specialist
DX: C48.2 Malignant neoplasm of peritoneum, unspecified (principal); R18.0 Malignant ascites

== ENCOUNTER 2023-09-27 22:22 | Emergency (ER) | payer OTHER ==
[~2023-09-27] VITALS: Ht 157.5 cm; Wt 58.3 kg
[~2023-09-27 22:22] MED LIST changes: -FLUT50SP17 INH; +FLUTISP INH
[2023-09-27] MEDS ORDERED: NS 500 ML IV ONE (22:40)
[2023-09-28] MEDS ORDERED: HumuLIN R (REGULAR) INSULIN (NovoLIN R) **100U/ML** PER UNIT SC STA ×2 (00:01→04:14)
[2023-09-28 00:07] LABS: BASO % 0.5 % (0.0-1.0); HEMATOCRIT 33.5 % (36.0-47.0); HEMOGLOBIN 11.8 g/dl (12.0-15.5); LYMPH # 0.8 10^3/uL (1.5-5.0); LYMPH % 18.6 % (24.0-44.0); MEAN CORPUSCULAR HEMOGLOBIN 29.9 pg (27.0-33.0); MEAN CORPUSCULAR HGB CONC 35.2 g/dl (32.0-36.5); MONO # 0.2 10^3/uL (0.0-0.8); MONO % 5.1 % (2.0-8.0); NEUTROPHILS # 3.1 10^3/uL (1.5-8.5); NEUTROPHILS % 72.8 % (36.0-66.0); PLATELET COUNT, AUTOMATED 112 10^3/uL (150-450); RED BLOOD COUNT 3.94 10^6/uL (4.00-5.40); WHITE BLOOD COUNT 4.3 10^3/uL (4.0-10.0)
[2023-09-28 00:10] LABS: CPK CREATINE PHOSPHOKINASE 18 U/L (34-145)
[2023-09-28 00:18] LABS: ALBUMIN 2.8 G/DL (3.2-5.2); ALKALINE PHOSPHATASE 118 U/L (46-116); ALT/SGPT 24 U/L (7.0-40); AST/SGOT < 8 U/L (<34); BILIRUBIN,DIRECT 0.2 MG/DL (<0.4); BILIRUBIN,TOTAL 0.6 MG/DL (0.3-1.2); BLOOD UREA NITROGEN 17 MG/DL (9-23); CALCIUM LEVEL 7.9 MG/DL (8.5-10.1); CARBON DIOXIDE LEVEL 31 MMOL/L (20-31); CHLORIDE LEVEL 92 MMOL/L (98-107); CK-MB VALUE MASS < 1.0 NG/ML (<3.6); CREATININE FOR GFR 0.71 MG/DL (0.55-1.30); GLOMERULAR FILTRATION RATE > 60.0 (>51); MB/CK RELATIVE INDEX 5.55 (< OR =4); POTASSIUM SERUM 3.4 MMOL/L (3.5-5.1); SODIUM LEVEL 129 MMOL/L (136-145); THYROID STIMULATING HORMONE 0.449 uIU/ML (0.55-4.78); TOTAL PROTEIN 5.5 G/DL (5.7-8.2)
[2023-09-28 03:38] LABS: GLUCOSE, FASTING 725 MG/DL (60-100)
[2023-09-28] MEDS ORDERED: NS 1,000 ML IV ONE (04:15)
[2023-09-28] MEDS ORDERED: GABAPENTIN 400MG CAP PO ONE (05:20)
[2023-09-28 07:45] VITALS: BP 146/85; TEMP 96.9; O2SAT 97
== END 2023-09-28 08:02 | disposition home or self-care (01) ==
LOC: EDBD 22:22 → M ED 22:22
DX: E11.65 Type 2 diabetes mellitus with hyperglycemia (principal); R53.1 Weakness; I10 Essential (primary) hypertension; Z79.899 Other long term (current) drug therapy; Z79.1 Long term (current) use of non-steroidal anti-inflammatories (NSAID); Z79.891 Long term (current) use of opiate analgesic
CPT/HCPCS: 71045; 80047; 80048; 80076; 82550; 82553; 83605; 84443; 85025; 87040; 87486; 87581; 87633; 87798; 93005; 96361; 96372; 99285; J1815

== ENCOUNTER 2023-10-02 14:00 | Emergency (ER) | payer OTHER ==
[~2023-10-02] VITALS: Ht 157.5 cm; Wt 57.4 kg
[~2023-10-02 14:00] MED LIST changes: +SODIUM CHLORIDE 0.9% INJ 10 ML SYR IV SCH
[2023-10-02] MEDS ORDERED: NS 1,000 ML IV ONE (15:05)
[2023-10-02] MEDS ORDERED: GLYB5TAB6 PO (15:12)
[2023-10-02] MEDS ORDERED: GLUCMIS7 XX (15:13)
[2023-10-02] MEDS ORDERED: LANC1COM MC (15:15)
[2023-10-02] MEDS ORDERED: SODIUM CHLORIDE 0.9% INJ 10 ML SYR IV PRN (15:30)
[2023-10-02] MEDS ORDERED: regular insulin (15:30)
[2023-10-02 15:35] LABS: VENOUS BASE EXCESS 3.2 (-2.0-2.0); VENOUS HCO3 28.5 MMOL/L (23.0-27.0); VENOUS O2 SATURATION 86.9 % (60.0-80.0); VENOUS PARTIAL PRESSURE CO2 46.5 mmHg (38.0-50.0); VENOUS PARTIAL PRESSURE O2 51.6 mmHg (30.0-50.0); VENOUS PH 7.405 UNITS (7.330-7.430); VENOUS STANDARD HCO3 27.1 MMOL/L; VENOUS TOTAL CO2 29.9 MMOL/L (24.0-28.0)
[2023-10-02 15:40] LABS: HEMATOCRIT 31.2 % (36.0-47.0); HEMOGLOBIN 10.8 g/dl (12.0-15.5); MEAN CORPUSCULAR HEMOGLOBIN 29.2 pg (27.0-33.0); MEAN CORPUSCULAR HGB CONC 34.6 g/dl (32.0-36.5); MEAN CORPUSCULAR VOLUME 84.3 fl (80.0-96.0); PLATELET COUNT, AUTOMATED 151 10^3/uL (150-450); WHITE BLOOD COUNT 6.6 10^3/uL (4.0-10.0)
[2023-10-02 16:10] LABS: LIPASE 58 U/L (12-53)
[2023-10-02 16:28] LABS: ALBUMIN 2.7 G/DL (3.2-5.2); ALKALINE PHOSPHATASE 102 U/L (46-116); ALT/SGPT 21 U/L (7.0-40); AST/SGOT < 8 U/L (<34); BILIRUBIN,DIRECT 0.2 MG/DL (<0.4); BILIRUBIN,TOTAL 0.5 MG/DL (0.3-1.2); BLOOD UREA NITROGEN 23 MG/DL (9-23); CALCIUM LEVEL 8.4 MG/DL (8.5-10.1); CARBON DIOXIDE LEVEL 28 MMOL/L (20-31); CHLORIDE LEVEL 95 MMOL/L (98-107); CREATININE FOR GFR 0.56 MG/DL (0.55-1.30); GLOMERULAR FILTRATION RATE > 60.0 (>51); GLUCOSE, FASTING 517 MG/DL (60-100); POTASSIUM SERUM 3.4 MMOL/L (3.5-5.1); SODIUM LEVEL 131 MMOL/L (136-145); TOTAL PROTEIN 5.4 G/DL (5.7-8.2)
[2023-10-02] MEDS ORDERED: HumuLIN R (REGULAR) INSULIN (NovoLIN R) **100U/ML** PER UNIT IV ONE (16:30)
[2023-10-02 17:03] LABS: EOSINOPHILS 1 % (0-3); LYMPHOCYTES 17 % (16-44); METAMYELOCYTES 2 % (0-0); MONOCYTES 3 % (0-5); MYELOCYTES 2 % (0-0); NEUTROPHILS 73 % (28-66)
[2023-10-02 17:04] LABS: PLATELET ESTIMATE NORMAL (NORMAL)
[2023-10-02 17:07] LABS: HEMOGLOBIN A1c > 14.0 % (4.0-6.0)
[2023-10-02 18:00] VITALS: BP 130/75; TEMP 96.8; O2SAT 98
[2023-10-06] MEDS ORDERED: INSU100V19 (13:33)
== END 2023-10-02 18:50 | disposition home or self-care (01) ==
LOC: M ED 14:00
DX: E11.65 Type 2 diabetes mellitus with hyperglycemia (principal); I10 Essential (primary) hypertension; Z92.21 Personal history of antineoplastic chemotherapy; Z86.73 Personal history of transient ischemic attack (TIA), and cerebral infarction without residual deficits; Z79.899 Other long term (current) drug therapy
CPT/HCPCS: 80048; 80076; 82803; 83036; 83690; 85025; 96360; 96361; 96375; 99284; J1815

== ENCOUNTER → 2023-10-15 | Outpatient (CLI) | payer OTHER ==
[~2023-10-15] MED LIST changes: +GASTROGRAFIN SOLUTION 30ML As Ordered ONE; +GLUCMIS7 XX; +INSU100V19; +ISOVUE-370 76% 100ML VIAL As Ordered ONE; +LANC1COM MC; -SODIUM CHLORIDE 0.9% INJ 10 ML SYR IV SCH; +regular insulin
== END ==
LOC: M RAD 13:37
PROVIDERS: ATTEND Internal Medicine Medical Oncology
DX: C48.2 Malignant neoplasm of peritoneum, unspecified (principal)
CPT/HCPCS: 71260; 74177; Q9963; Q9967

== ENCOUNTER → 2023-11-11 | Outpatient (CLI) | payer OTHER ==
[~2023-11-11] VITALS: Ht 157.5 cm; Wt 73.6 kg
[~2023-11-11] MED LIST changes: +AMLO1TAB24 PO; +AMOX500C PO; +DEXA2TA PO; +DIAZ5TAB PO; +DILT180C28 PO; -GASTROGRAFIN SOLUTION 30ML As Ordered ONE; +HUMA100I5 SQ; -HYDR-3910 PO; +HYDR25TA87 PO; +HYDR50TA46 PO; -INSU100V19; +INSU100V19 SQ; -ISOVUE-370 76% 100ML VIAL As Ordered ONE; +LANTINJ4 SQ; -SENN-83; +SENN-83 PO; +TRAZ-252 PO; +[UNRECOGNIZED DRUG - OTHER]
[2023-11-11 08:51] VITALS: BP 143/86; O2SAT 100
== END ==
LOC: M PAL 08:39
PROVIDERS: ATTEND Nurse Practitioner Adult Health
DX: G89.3 Neoplasm related pain (acute) (chronic) (principal); G62.0 Drug-induced polyneuropathy; C48.2 Malignant neoplasm of peritoneum, unspecified; R18.0 Malignant ascites; R53.83 Other fatigue; Z51.5 Encounter for palliative care; Z79.4 Long term (current) use of insulin; Z79.52 Long term (current) use of systemic steroids; Z79.84 Long term (current) use of oral hypoglycemic drugs; Z79.891 Long term (current) use of opiate analgesic; Z79.899 Other long term (current) drug therapy; Z92.21 Personal history of antineoplastic chemotherapy; Z86.73 Personal history of transient ischemic attack (TIA), and cerebral infarction without residual deficits

== ENCOUNTER → 2023-11-22 | Outpatient (CLI) | payer OTHER | LOC: M PLARAD 07:47 | PROVIDERS: ATTEND Nurse Practitioner | DX: C48.2 Malignant neoplasm of peritoneum, unspecified (principal); N13.30 Unspecified hydronephrosis | CPT/HCPCS: 78815; A9552 ==

== ENCOUNTER → 2023-11-24 | Outpatient (REF) | payer OTHER ==
[2023-11-24 13:25] LABS: HEMOGLOBIN 10.3 g/dl (12.0-15.5); MEAN CORPUSCULAR HEMOGLOBIN 28.9 pg (27.0-33.0); MEAN CORPUSCULAR HGB CONC 32.2 g/dl (32.0-36.5); MEAN CORPUSCULAR VOLUME 89.6 fl (80.0-96.0); PLATELET COUNT, AUTOMATED 190 10^3/uL (150-450); RED BLOOD COUNT 3.57 10^6/uL (4.00-5.40); WHITE BLOOD COUNT 8.1 10^3/uL (4.0-10.0)
[2023-11-24 13:42] LABS: INR 1.15; PROTHROMBIN TIME 14.4 SECONDS (12.5-14.5)
== END ==
LOC: M LAB REF 12:44
PROVIDERS: ATTEND Dentist
DX: C78.1 Secondary malignant neoplasm of mediastinum (principal)

== ENCOUNTER → 2023-12-08 | Outpatient (CLI) | payer OTHER ==
[~2023-12-08] MED LIST changes: +PREG75CA3
== END ==
LOC: M ONCR 13:10
PROVIDERS: ATTEND General Practice
DX: C76.2 Malignant neoplasm of abdomen (principal); I69.951 Hemiplegia and hemiparesis following unspecified cerebrovascular disease affecting right dominant side; Z79.4 Long term (current) use of insulin; Z79.899 Other long term (current) drug therapy

== ENCOUNTER → 2023-12-10 | Outpatient (CLI) | payer OTHER ==
[2023-12-10 12:00] VITALS: TEMP 98.8
[2023-12-10 12:45] VITALS: BP 139/83; O2SAT 97
== END ==
LOC: M IRPRO 11:24
PROVIDERS: ATTEND Specialist
DX: R18.8 Other ascites (principal)

== ENCOUNTER → 2024-01-04 | Outpatient (CLI) | payer OTHER ==
[~2024-01-04] MED LIST changes: +FUROSEMIDE 20MG/2ML VIAL As Ordered ONE; +LACT20EL PO; +PREG100CA PO
== END ==
LOC: M RAD 11:48
PROVIDERS: ATTEND Specialist
DX: N13.30 Unspecified hydronephrosis (principal)
CPT/HCPCS: 76775; 78708; A9562; J1940

== ENCOUNTER 2024-01-05 14:33 | Outpatient (RCR) | payer OTHER ==
[~2024-01-05 14:33] MED LIST changes: -FUROSEMIDE 20MG/2ML VIAL As Ordered ONE; -PREG75CA3; +PREG75CA3 PO
[2024-01-10] MEDS ORDERED: LEVE500T5 PO (09:08)
[2024-01-10] MEDS ORDERED: ONDA-84 PO (12:41)
[2024-01-10] MEDS ORDERED: OXYC-517 PO (12:41)
[2024-01-10] MEDS ORDERED: CONS10SO3 PO (12:41)
[2024-01-10] MEDS ORDERED: THIA100TA PO (12:41)
[2024-01-10] MEDS ORDERED: SENN-186 PO (12:41)
[2024-01-10] MEDS ORDERED: TRAZ-252 PO (12:42)
== END 2024-01-11 ==
LOC: M ONCR 14:33
PROVIDERS: ATTEND General Practice
DX: Z51.0 Encounter for antineoplastic radiation therapy (principal); C76.2 Malignant neoplasm of abdomen

== ENCOUNTER → 2024-01-07 | Outpatient (CLI) | payer OTHER ==
[~2024-01-07] MED LIST changes: +PREG75CA3; -PREG75CA3 PO
[2024-01-07 16:00] LABS: HEMATOCRIT 36.7 % (36.0-47.0); HEMOGLOBIN 11.6 g/dl (12.0-15.5); MEAN CORPUSCULAR HEMOGLOBIN 26.4 pg (27.0-33.0); MEAN CORPUSCULAR HGB CONC 31.6 g/dl (32.0-36.5); MEAN CORPUSCULAR VOLUME 83.6 fl (80.0-96.0); PLATELET COUNT, AUTOMATED 183 10^3/uL (150-450); RED BLOOD COUNT 4.39 10^6/uL (4.00-5.40); WHITE BLOOD COUNT 5.5 10^3/uL (4.0-10.0)
[2024-01-07 17:07] LABS: CREATININE FOR GFR 1.54 MG/DL (0.55-1.30); GLOMERULAR FILTRATION RATE 37.1 (>51); POTASSIUM SERUM 3.4 MMOL/L (3.5-5.1)
== END ==
LOC: M EKG 15:01
PROVIDERS: ATTEND Specialist
DX: Z01.818 Encounter for other preprocedural examination (principal); R94.31 Abnormal electrocardiogram [ECG] [EKG]

== ENCOUNTER → 2024-01-07 | Outpatient (REF) | payer OTHER ==
[~2024-01-07] MED LIST changes: +CONS10SO3 PO; +LEVE500T5 PO; -PREG75CA3; +PREG75CA3 PO; +THIA100TA PO
[2024-01-07 18:01] LABS: APPEARANCE, URINE CLEAR (CLEAR); BACTERIA, URINE AUTO NEGATIVE (NEGATIVE); BILIRUBIN, URINE AUTO NEGATIVE (NEGATIVE); BLOOD, URINE BLOOD NEGATIVE (NEGATIVE); COLOR, URINE YELLOW (YELLOW); GLUCOSE, URINE (UA) AUTO 3+ mg/dL (NEGATIVE); KETONE, URINE AUTO NEGATIVE (NEGATIVE); LEUKOCYTE ESTERASE, URINE AUTO NEGATIVE (NEGATIVE); NITRITE, URINE AUTO NEGATIVE (NEGATIVE); PROTEIN, URINE AUTO NEGATIVE (NEGATIVE); RBC, URINE AUTO 1 /HPF (0-3); SPECIFIC GRAVITY URINE AUTO 1.026 (1.002-1.035); SQUAMOUS EPITHELIAL CELL UR AU 0 /HPF (0-6); UROBILINOGEN, URINE AUTO 0.2 mg/dL (0.0-2.0); WBC, URINE AUTO 0 /HPF (0-3)
== END ==
LOC: M SMT 16:52
PROVIDERS: ATTEND Specialist
DX: Z01.818 Encounter for other preprocedural examination (principal)

== ENCOUNTER → 2024-01-11 | Outpatient (CLI) | payer OTHER ==
[~2024-01-11] MED LIST changes: +ISOVUE-300 61% 100ML VIAL As Ordered ONE; +KEPP1TAB2 PO; +LIDOCAINE 2% 100MG/5ML SDV (FOR ANES.) As Ordered ONE; +LIDOCAINE 2% 5ML JELLY UROJET As Ordered ONE; +ROCURONIUM BROMIDE 50MG/5ML VIAL As Ordered ONE; +SUGAMMADEX SODIUM 500 MG/5 ML VIAL (BRIDION) As Ordered ONE; +ceFAZolin 2 GM/D5W 50 ML IV BAG As Ordered ONE; +propofoL 200 MG/20 ML VIAL As Ordered ONE
== END ==
LOC: M IRPRO 06:55 → EDSTATUS 15:00
PROVIDERS: ATTEND Specialist
DX: N13.30 Unspecified hydronephrosis (principal)
CPT/HCPCS: 52332; 76000; J0690; Q9967

== ENCOUNTER → 2024-01-25 | Outpatient (CLI) | payer OTHER ==
[~2024-01-25] MED LIST changes: +FENT12DI8 TOP; -ISOVUE-300 61% 100ML VIAL As Ordered ONE; -LIDOCAINE 2% 100MG/5ML SDV (FOR ANES.) As Ordered ONE; -LIDOCAINE 2% 5ML JELLY UROJET As Ordered ONE; -ROCURONIUM BROMIDE 50MG/5ML VIAL As Ordered ONE; -SUGAMMADEX SODIUM 500 MG/5 ML VIAL (BRIDION) As Ordered ONE; -ceFAZolin 2 GM/D5W 50 ML IV BAG As Ordered ONE; -propofoL 200 MG/20 ML VIAL As Ordered ONE
== END ==
LOC: M PAL 07:35
PROVIDERS: ATTEND Nurse Practitioner Family
DX: G89.3 Neoplasm related pain (acute) (chronic) (principal); C48.2 Malignant neoplasm of peritoneum, unspecified; R11.0 Nausea; R18.0 Malignant ascites; Z51.5 Encounter for palliative care; Z79.4 Long term (current) use of insulin; Z79.52 Long term (current) use of systemic steroids; Z79.84 Long term (current) use of oral hypoglycemic drugs; Z79.891 Long term (current) use of opiate analgesic; Z79.899 Other long term (current) drug therapy; Z92.21 Personal history of antineoplastic chemotherapy; Z86.73 Personal history of transient ischemic attack (TIA), and cerebral infarction without residual deficits

== ENCOUNTER 2024-02-07 20:14 | Inpatient (IN) | payer OTHER ==
[~2024-02-07] VITALS: Ht 157.5 cm; Wt 67.6 kg
[~2024-02-07 20:14] MED LIST changes: +GLYC1TAB18 PO; +LEVE750T5 PO; +ONDA-284 PO; +POLY17PO18 PO
[2024-02-07 21:06] LABS: BASO % 0.4 % (0.0-1.0); EOS % 0.2 % (0.0-3.0); HEMATOCRIT 43.9 % (36.0-47.0); HEMOGLOBIN 14.4 g/dl (12.0-15.5); LYMPH # 0.9 10^3/uL (1.5-5.0); LYMPH % 9.4 % (24.0-44.0); MEAN CORPUSCULAR HEMOGLOBIN 26.4 pg (27.0-33.0); MEAN CORPUSCULAR HGB CONC 32.8 g/dl (32.0-36.5); MEAN CORPUSCULAR VOLUME 80.6 fl (80.0-96.0); MONO # 0.5 10^3/uL (0.0-0.8); MONO % 4.7 % (2.0-8.0); NEUTROPHILS # 8.2 10^3/uL (1.5-8.5); NEUTROPHILS % 84.8 % (36.0-66.0); PLATELET COUNT, AUTOMATED 268 10^3/uL (150-450); RED BLOOD COUNT 5.45 10^6/uL (4.00-5.40); WHITE BLOOD COUNT 9.7 10^3/uL (4.0-10.0)
[2024-02-07] MEDS: NS 1,000 ML IV ONE (21:06)
[2024-02-07] MEDS: MORPHINE 4 MG/ML 1ML VIAL IV PRN (21:07)
[2024-02-07] MEDS: ONDANSETRON 4MG 2ML VIAL IV ONE (21:07)
[2024-02-07 21:29] LABS: INR 1.13; LIPASE 18 U/L (12-53); PROTHROMBIN TIME 14.1 SECONDS (12.5-14.5)
[2024-02-07 21:30] LABS: CK-MB VALUE MASS < 1.0 NG/ML (<3.6)
[2024-02-07 21:32] LABS: ALBUMIN 2.7 G/DL (3.2-5.2); ALKALINE PHOSPHATASE 114 U/L (46-116); ALT/SGPT < 9 U/L (7.0-40); AST/SGOT 11 U/L (<34); BILIRUBIN,DIRECT 0.3 MG/DL (<0.4); BILIRUBIN,TOTAL 0.7 MG/DL (0.3-1.2); BLOOD UREA NITROGEN 13 MG/DL (9-23); CALCIUM LEVEL 8.5 MG/DL (8.5-10.1); CARBON DIOXIDE LEVEL 27 MMOL/L (20-31); CHLORIDE LEVEL 94 MMOL/L (98-107); CPK CREATINE PHOSPHOKINASE < 15 U/L (34-145); CREATININE FOR GFR 1.44 MG/DL (0.55-1.30); GLOMERULAR FILTRATION RATE 40.1 (>51); GLUCOSE, FASTING 80 MG/DL (60-100); POTASSIUM SERUM 3.7 MMOL/L (3.5-5.1); SODIUM LEVEL 136 MMOL/L (136-145); TOTAL PROTEIN 5.9 G/DL (5.7-8.2)
[2024-02-07] MEDS ORDERED: ISOVUE-370 76% 100ML VIAL As Ordered ONE (22:12)
[2024-02-07] MEDS ORDERED: METOCLOPRAMIDE 10MG TAB PO ONE (23:25)
[2024-02-07] MEDS: METOCLOPRAMIDE INJ 10MG/2ML VIAL IV ONE (23:29)
[2024-02-08] VITALS (12 sets, daily range): BP systolic 119–165; BP diastolic 74–93; TEMP 97.4–98.2; O2SAT 91–100
[2024-02-08] MEDS ORDERED: MED REC IN PROGRESS XX SCH (02:15)
[2024-02-08] MEDS: MORPHINE 4 MG/ML 1ML VIAL IV PRN ×2 (03:00→08:39)
[2024-02-08] MEDS ORDERED: GLUCOSE 4 GM CHEW PO PRN (03:30)
[2024-02-08] MEDS ORDERED: GLUCAGON INJ 1MG VIAL SC PRN (03:30)
[2024-02-08] MEDS ORDERED: DEXTROSE 50% 50ML SYRINGE IV PRN (03:30)
[2024-02-08] MEDS: D5W/LR 1,000 ML IV SCH (04:00)
[2024-02-08] MEDS ORDERED: METOCLOPRAMIDE INJ 10MG/2ML VIAL IV PRN (05:00)
[2024-02-08] MEDS: INSULIN LISPRO (NovoLOG) PER UNIT SC SCH (05:57)
[2024-02-08 06:09] LABS: HEMATOCRIT 42.2 % (36.0-47.0); HEMOGLOBIN 13.5 g/dl (12.0-15.5); MEAN CORPUSCULAR HEMOGLOBIN 26.5 pg (27.0-33.0); MEAN CORPUSCULAR VOLUME 82.7 fl (80.0-96.0); PLATELET COUNT, AUTOMATED 193 10^3/uL (150-450); WHITE BLOOD COUNT 6.3 10^3/uL (4.0-10.0)
[2024-02-08] MEDS ORDERED: HOME MED LIST COMPLETE! XX SCH (06:10)
[2024-02-08 06:34] LABS: BLOOD UREA NITROGEN 13 MG/DL (9-23); CARBON DIOXIDE LEVEL 28 MMOL/L (20-31); CHLORIDE LEVEL 96 MMOL/L (98-107); CREATININE FOR GFR 1.29 MG/DL (0.55-1.30); GLOMERULAR FILTRATION RATE 45.5 (>51); GLUCOSE, FASTING 71 MG/DL (60-100); MAGNESIUM LEVEL 1.6 MG/DL (1.8-2.4); POTASSIUM SERUM 4.2 MMOL/L (3.5-5.1); SODIUM LEVEL 136 MMOL/L (136-145)
[2024-02-08] MEDS: ENOXAPARIN 40MG/0.4ML SYRINGE (J1650 PER 10MG) SC SCH (08:38)
[2024-02-08] MEDS: MAG SULF 1GM/100ML (MAG RUN) 1 GM in IV 1 EA IV ONE (08:38)
[2024-02-08] MEDS ORDERED: ALPRAZolam 0.25 MG TAB PO PRN (10:25)
[2024-02-08] MEDS: ALPRAZolam 0.5 MG TAB PO ONE (10:35)
[2024-02-08 13:44] LABS: ALBUMIN 2.3 G/DL (3.2-5.2); ALKALINE PHOSPHATASE 100 U/L (46-116); ALT/SGPT < 9 U/L (7.0-40); AST/SGOT 13 U/L (<34); BILIRUBIN,DIRECT 0.2 MG/DL (<0.4); BILIRUBIN,TOTAL 0.5 MG/DL (0.3-1.2); TOTAL PROTEIN 5.3 G/DL (5.7-8.2)
[2024-02-08] MEDS ORDERED: NALOXONE INJ 0.4MG/1ML VIAL IV STA (14:31)
[2024-02-08] MEDS ORDERED: flumazeniL 0.5MG/5ML VIAL IV STA (14:31)
[2024-02-08] MEDS: diphenhydrAMINE 50MG/ML VIAL IV ONE (14:45)
[2024-02-08] MEDS: ACETAMINOPHEN *IV* 1,000 MG in IV 1 EA IV ONE (14:58)
[2024-02-08] MEDS: HYDROMORPHONE HCL 0.5 MG/ 0.5 ML SYRINGE IV ONE (14:59)
[2024-02-08 15:03] LABS: BASO % 0.3 % (0.0-1.0); EOS % 0.3 % (0.0-3.0); HEMATOCRIT 44.8 % (36.0-47.0); HEMOGLOBIN 14.4 g/dl (12.0-15.5); LYMPH # 1.4 10^3/uL (1.5-5.0); LYMPH % 18.1 % (24.0-44.0); MEAN CORPUSCULAR HEMOGLOBIN 26.1 pg (27.0-33.0); MEAN CORPUSCULAR HGB CONC 32.1 g/dl (32.0-36.5); MEAN CORPUSCULAR VOLUME 81.2 fl (80.0-96.0); MONO # 0.3 10^3/uL (0.0-0.8); MONO % 4.2 % (2.0-8.0); NEUTROPHILS # 5.8 10^3/uL (1.5-8.5); NEUTROPHILS % 76.3 % (36.0-66.0); PLATELET COUNT, AUTOMATED 178 10^3/uL (150-450); RED BLOOD COUNT 5.52 10^6/uL (4.00-5.40); WHITE BLOOD COUNT 7.6 10^3/uL (4.0-10.0)
[2024-02-08 15:11] LABS: ERYTHROCYTE SEDIMENTATION RATE 33 mm/hr (0-30)
[2024-02-08] MEDS ORDERED: MIDAZOLAM INJ 2MG/2ML VIAL As Ordered ONE (15:14)
[2024-02-08] MEDS ORDERED: ROCURONIUM BROMIDE 50MG/5ML VIAL ONE (15:17)
[2024-02-08] MEDS ORDERED: propofoL 200 MG/20 ML VIAL ONE (15:17)
[2024-02-08] MEDS ORDERED: PROPOFOL 1,000 MG/100 ML VIAL As Ordered ONE (15:24)
[2024-02-08] MEDS ORDERED: MIDAZOLAM 5MG/ML 1ML VIAL IV PRN (15:30)
[2024-02-08] MEDS ORDERED: MIDAZOLAM 100MG/100ML-0.9%NACL IV ONE (15:31)
[2024-02-08 15:33] LABS: PROCALCITONIN 0.13 ng/ml
[2024-02-08] MEDS ORDERED: REFRIGERATOR IV KEYS XX PRN (15:40)
[2024-02-08 15:43] LABS: ALBUMIN 2.5 G/DL (3.2-5.2); ALKALINE PHOSPHATASE 109 U/L (46-116); ALT/SGPT < 9 U/L (7.0-40); AST/SGOT 12 U/L (<34); BILIRUBIN,TOTAL 0.6 MG/DL (0.3-1.2); BLOOD UREA NITROGEN 13 MG/DL (9-23); CALCIUM LEVEL 8.4 MG/DL (8.5-10.1); CARBON DIOXIDE LEVEL 26 MMOL/L (20-31); CHLORIDE LEVEL 98 MMOL/L (98-107); CREATININE FOR GFR 1.21 MG/DL (0.55-1.30); GLUCOSE, FASTING 138 MG/DL (60-100); MAGNESIUM LEVEL 1.8 MG/DL (1.8-2.4); POTASSIUM SERUM 4.2 MMOL/L (3.5-5.1); PROLACTIN 50.74 NG/ML; SODIUM LEVEL 137 MMOL/L (136-145); TOTAL PROTEIN 5.6 G/DL (5.7-8.2)
[2024-02-08] MEDS: MIDAZOLAM HCL 250 MG in D5W 200 ML IV SCH (15:45)
[2024-02-08] MEDS: levETIRAcetam INJection 750 MG in D5W 100 ML IV SCH ×2 (15:49→17:30)
[2024-02-08] MEDS: NS 1,000 ML IV SCH (16:26)
[2024-02-08] MEDS ORDERED: FENTANYL DRIP LOCK BOX KEY 1 EACH XX PRN (16:40)
[2024-02-08] MEDS: fentaNYL CITRATE/NaCl 1,000 MCG in IV 1 EA IV SCH (17:13)
[2024-02-09] VITALS (31 sets, daily range): BP systolic 86–163; BP diastolic 56–86; TEMP 98.1–102.2; O2SAT 90–100
[2024-02-09 04:29] LABS: BASO % 0.1 % (0.0-1.0); EOS % 0.1 % (0.0-3.0); LYMPH # 1.1 10^3/uL (1.5-5.0); LYMPH % 11.8 % (24.0-44.0); MEAN CORPUSCULAR HEMOGLOBIN 26.7 pg (27.0-33.0); MEAN CORPUSCULAR HGB CONC 33.2 g/dl (32.0-36.5); MEAN CORPUSCULAR VOLUME 80.4 fl (80.0-96.0); MONO # 0.3 10^3/uL (0.0-0.8); MONO % 2.8 % (2.0-8.0); NEUTROPHILS # 7.6 10^3/uL (1.5-8.5); NEUTROPHILS % 84.4 % (36.0-66.0); PLATELET COUNT, AUTOMATED 210 10^3/uL (150-450); RED BLOOD COUNT 4.08 10^6/uL (4.00-5.40)
[2024-02-09 04:30] LABS: HEMATOCRIT 32.8 % (36.0-47.0); HEMOGLOBIN 10.9 g/dl (12.0-15.5)
[2024-02-09 04:42] LABS: ALBUMIN 1.9 G/DL (3.2-5.2); BILIRUBIN,TOTAL 0.8 MG/DL (0.3-1.2); CALCIUM LEVEL 7.4 MG/DL (8.5-10.1); CREATININE FOR GFR 1.23 MG/DL (0.55-1.30); GLOMERULAR FILTRATION RATE 48.1 (>51); MAGNESIUM LEVEL 1.5 MG/DL (1.8-2.4); PHOSPHORUS LEVEL 2.2 MG/DL (2.5-4.9); TOTAL PROTEIN 4.3 G/DL (5.7-8.2)
[2024-02-09] MEDS: MAG SULF 1GM/100ML (MAG RUN) 1 GM in IV 1 EA IV ONE (05:14)
[2024-02-09] MEDS: KCL 20MEQ IN 100ML SWI (KRUN) 20 MEQ in IV 1 EA IV SCH (06:29)
[2024-02-09] MEDS: MIDAZOLAM 100MG/100ML-0.9%NACL 100 MG in IV 1 EA IV SCH (07:04)
[2024-02-09] MEDS ORDERED: ACETAMINOPHEN TAB 650MG DOSE (2X325MG) FT PRN (08:10)
[2024-02-09] MEDS ORDERED: FENTANYL REMOVAL DOCUMENTATION MISC XX SCH (09:00)
[2024-02-09] MEDS: PANTOPRAZOLE 40MG VIAL IV SCH (09:41)
[2024-02-09] MEDS: ACETAMINOPHEN 325MG/10.15ML UDC GT PRN (09:41)
[2024-02-09] MEDS: LR 1,000 ML IV ONE (11:38)
[2024-02-09] MEDS: NOREPINEPHRINE 4MG IN D5 250ML 4 MG in IV 1 EA IV SCH (14:06)
[2024-02-09] MEDS: SODIUM PHOSPHATE INJ 30 MMOL in D5W 500 ML IV ONE (14:10)
[2024-02-09] MEDS: cefTRIAXone SOD 2 GM in D5W MINI-BAG PLUS 50 ML IV SCH (16:31)
[2024-02-09] MEDS: metroNIDAZOLE 500 MG in IV 1 EA IV SCH (17:57)
[2024-02-09] MEDS: ACETAMINOPHEN *IV* 1,000 MG in IV 1 EA IV SCH (23:26)
[2024-02-10] VITALS (38 sets, daily range): BP systolic 77–146; BP diastolic 51–87; TEMP 97.9–99.5; O2SAT 93–100
[2024-02-10 00:35] LABS: CK-MB VALUE MASS < 1.0 NG/ML (<3.6)
[2024-02-10 00:39] LABS: ALBUMIN 1.5 G/DL (3.2-5.2); BLOOD UREA NITROGEN 15 MG/DL (9-23); CALCIUM LEVEL 6.5 MG/DL (8.5-10.1); CARBON DIOXIDE LEVEL 26 MMOL/L (20-31); CHLORIDE LEVEL 106 MMOL/L (98-107); CPK CREATINE PHOSPHOKINASE 50 U/L (34-145); CREATININE FOR GFR 1.24 MG/DL (0.55-1.30); GLOMERULAR FILTRATION RATE 47.6 (>51); GLUCOSE, FASTING 148 MG/DL (60-100); MAGNESIUM LEVEL 1.5 MG/DL (1.8-2.4); PHOSPHORUS LEVEL 3.4 MG/DL (2.5-4.9); POTASSIUM SERUM 2.8 MMOL/L (3.5-5.1); SODIUM LEVEL 138 MMOL/L (136-145)
[2024-02-10] MEDS: MAG SULF 1GM/100ML (MAG RUN) 1 GM in IV 1 EA IV SCH (01:07)
[2024-02-10] MEDS: KCL 20MEQ IN 100ML SWI (KRUN) 20 MEQ in IV 1 EA IV SCH (04:38)
[2024-02-10 06:39] LABS: BASO % 0.2 % (0.0-1.0); EOS # 0.1 10^3/uL (0.0-0.5); EOS % 0.7 % (0.0-3.0); HEMATOCRIT 28.1 % (36.0-47.0); HEMOGLOBIN 9.2 g/dl (12.0-15.5); LYMPH # 0.9 10^3/uL (1.5-5.0); LYMPH % 10.1 % (24.0-44.0); MEAN CORPUSCULAR HEMOGLOBIN 26.5 pg (27.0-33.0); MEAN CORPUSCULAR HGB CONC 32.7 g/dl (32.0-36.5); MONO # 0.3 10^3/uL (0.0-0.8); MONO % 2.9 % (2.0-8.0); NEUTROPHILS # 7.4 10^3/uL (1.5-8.5); NEUTROPHILS % 85.5 % (36.0-66.0); PLATELET COUNT, AUTOMATED 140 10^3/uL (150-450); RED BLOOD COUNT 3.47 10^6/uL (4.00-5.40); WHITE BLOOD COUNT 8.7 10^3/uL (4.0-10.0)
[2024-02-10 07:06] LABS: ALBUMIN 1.4 G/DL (3.2-5.2); ALKALINE PHOSPHATASE 85 U/L (46-116); ALT/SGPT 15 U/L (7.0-40); AST/SGOT < 8 U/L (<34); BILIRUBIN,TOTAL 0.6 MG/DL (0.3-1.2); BLOOD UREA NITROGEN 13 MG/DL (9-23); CALCIUM LEVEL 6.8 MG/DL (8.5-10.1); CARBON DIOXIDE LEVEL 25 MMOL/L (20-31); CHLORIDE LEVEL 103 MMOL/L (98-107); CREATININE FOR GFR 1.22 MG/DL (0.55-1.30); GLOMERULAR FILTRATION RATE 48.5 (>51); GLUCOSE, FASTING 282 MG/DL (60-100); MAGNESIUM LEVEL 2.8 MG/DL (1.8-2.4); PHOSPHORUS LEVEL 3.1 MG/DL (2.5-4.9); POTASSIUM SERUM 3.5 MMOL/L (3.5-5.1); SODIUM LEVEL 134 MMOL/L (136-145); TOTAL PROTEIN 3.6 G/DL (5.7-8.2)
[2024-02-10] MEDS: LR 1,000 ML IV SCH (09:23)
[2024-02-10 09:29] LABS: ABG BASE EXCESS 2.1 (-2.0-2.0); ABG HCO3 23.1 MMOL/L (22.0-26.0); ABG O2 SATURATION 92.4 % (95.0-99.0); ABG PARTIAL PRESSURE CO2 25.2 mmHg (35.0-45.0); ABG STANDARD HCO3 26.3 MMOL/L. (22.0-26.0); ABG TOTAL CO2 23.9 MMOL/L (22.0-29.0); ABG pH (ARTERIAL) 7.581 UNITS (7.350-7.450)
[2024-02-10 11:09] LABS: ABG BASE EXCESS 0.1 (-2.0-2.0); ABG HCO3 19.9 MMOL/L (22.0-26.0); ABG O2 SATURATION 96.9 % (95.0-99.0); ABG PARTIAL PRESSURE O2 91.2 mmHg (75.0-100.0); ABG STANDARD HCO3 24.6 MMOL/L. (22.0-26.0); ABG TOTAL CO2 20.6 MMOL/L (22.0-29.0)
[2024-02-10 11:12] LABS: ABG pH (ARTERIAL) 7.621 UNITS (7.350-7.450)
[2024-02-10 11:13] LABS: ABG PARTIAL PRESSURE CO2 19.8 mmHg (35.0-45.0)
[2024-02-10] MEDS: NS 1,000 ML IV SCH (11:44)
[2024-02-10] MEDS ORDERED: fentaNYL 100 MCG/2 ML INJECTION IV PRN (12:45)
[2024-02-10] MEDS ORDERED: MIDAZOLAM INJ 2MG/2ML VIAL IV PRN (12:45)
[2024-02-10] MEDS: MORPHINE 2 MG/ML 1ML VIAL IV PRN (14:10)
[2024-02-10 16:16] LABS: ABG BASE EXCESS -1.2 (-2.0-2.0); ABG HCO3 19.7 MMOL/L (22.0-26.0); ABG O2 SATURATION 96.9 % (95.0-99.0); ABG PARTIAL PRESSURE CO2 22.1 mmHg (35.0-45.0); ABG STANDARD HCO3 23.5 MMOL/L. (22.0-26.0); ABG TOTAL CO2 20.3 MMOL/L (22.0-29.0); ABG pH (ARTERIAL) 7.567 UNITS (7.350-7.450)
[2024-02-10] MEDS ORDERED: dexmedeTOMidine 200 MCG in IV 1 EA IV SCH ×2 (16:20→17:26)
[2024-02-10 17:06] LABS: CALCIUM LEVEL 6.6 MG/DL (8.5-10.1); CREATININE FOR GFR 1.25 MG/DL (0.55-1.30); GLOMERULAR FILTRATION RATE 47.2 (>51); POTASSIUM SERUM 3.6 MMOL/L (3.5-5.1)
[2024-02-10] MEDS ORDERED: FENTANYL DRIP LOCK BOX KEY 1 EACH XX PRN (17:30)
[2024-02-10] MEDS: fentaNYL CITRATE/NaCl 1,000 MCG in IV 1 EA IV SCH (18:31)
[2024-02-10] MEDS: LIDOCAINE 5% (LIDODERM) PATCH TD ONE (22:34)
[2024-02-11] VITALS (31 sets, daily range): BP systolic 99–150; BP diastolic 56–110; TEMP 97.9–98.4; O2SAT 95–100
[2024-02-11 01:47] LABS: CPK CREATINE PHOSPHOKINASE 30 U/L (34-145)
[2024-02-11 02:25] LABS: ALBUMIN 1.4 G/DL (3.2-5.2); BLOOD UREA NITROGEN 12 MG/DL (9-23); CARBON DIOXIDE LEVEL 20 MMOL/L (20-31); CHLORIDE LEVEL 108 MMOL/L (98-107); CK-MB VALUE MASS < 1.0 NG/ML (<3.6); CREATININE FOR GFR 1.13 MG/DL (0.55-1.30); GLUCOSE, FASTING 112 MG/DL (60-100); MAGNESIUM LEVEL 1.7 MG/DL (1.8-2.4); MB/CK RELATIVE INDEX 3.33 (< OR =4); PHOSPHORUS LEVEL 2.3 MG/DL (2.5-4.9); POTASSIUM SERUM 3.1 MMOL/L (3.5-5.1); SODIUM LEVEL 137 MMOL/L (136-145)
[2024-02-11] MEDS: MAG SULF 1GM/100ML (MAG RUN) 1 GM in IV 1 EA IV SCH (02:53)
[2024-02-11 05:48] LABS: BASO % 0.1 % (0.0-1.0); EOS # 0.1 10^3/uL (0.0-0.5); EOS % 1.2 % (0.0-3.0); HEMATOCRIT 25.5 % (36.0-47.0); HEMOGLOBIN 8.3 g/dl (12.0-15.5); MEAN CORPUSCULAR HEMOGLOBIN 26.7 pg (27.0-33.0); MEAN CORPUSCULAR HGB CONC 32.5 g/dl (32.0-36.5); MONO # 0.4 10^3/uL (0.0-0.8); NEUTROPHILS # 6.8 10^3/uL (1.5-8.5); NEUTROPHILS % 81.1 % (36.0-66.0); PLATELET COUNT, AUTOMATED 127 10^3/uL (150-450); RED BLOOD COUNT 3.11 10^6/uL (4.00-5.40); WHITE BLOOD COUNT 8.3 10^3/uL (4.0-10.0)
[2024-02-11] MEDS: KCL 20MEQ IN 100ML SWI (KRUN) 20 MEQ in IV 1 EA IV SCH (06:00)
[2024-02-11 06:02] LABS: ABG BASE EXCESS -1.7 (-2.0-2.0); ABG O2 SATURATION 98.8 % (95.0-99.0); ABG PARTIAL PRESSURE CO2 24.7 mmHg (35.0-45.0); ABG PARTIAL PRESSURE O2 181.8 mmHg (75.0-100.0); ABG STANDARD HCO3 23.1 MMOL/L. (22.0-26.0); ABG TOTAL CO2 20.8 MMOL/L (22.0-29.0); ABG pH (ARTERIAL) 7.527 UNITS (7.350-7.450)
[2024-02-11 06:16] LABS: ALBUMIN 1.3 G/DL (3.2-5.2); BILIRUBIN,TOTAL 0.6 MG/DL (0.3-1.2); CALCIUM LEVEL 6.5 MG/DL (8.5-10.1); CREATININE FOR GFR 1.18 MG/DL (0.55-1.30); GLOMERULAR FILTRATION RATE 50.4 (>51); MAGNESIUM LEVEL 2.6 MG/DL (1.8-2.4); PHOSPHORUS LEVEL 2.8 MG/DL (2.5-4.9); POTASSIUM SERUM 3.3 MMOL/L (3.5-5.1); TOTAL PROTEIN 3.4 G/DL (5.7-8.2)
[2024-02-11 08:34] LABS: ABG BASE EXCESS -4.3 (-2.0-2.0); ABG HCO3 18.6 MMOL/L (22.0-26.0); ABG O2 SATURATION 98.7 % (95.0-99.0); ABG PARTIAL PRESSURE CO2 27.2 mmHg (35.0-45.0); ABG PARTIAL PRESSURE O2 162.7 mmHg (75.0-100.0); ABG STANDARD HCO3 20.9 MMOL/L. (22.0-26.0); ABG TOTAL CO2 19.4 MMOL/L (22.0-29.0); ABG pH (ARTERIAL) 7.453 UNITS (7.350-7.450)
[2024-02-11] MEDS: LIDOCAINE 5% (LIDODERM) PATCH TD SCH (10:56)
[2024-02-11] MEDS: SENOKOT S TAB PO STA (10:56)
[2024-02-11] MEDS: BISACODYL 10MG SUPP PR STA (10:56)
[2024-02-11] MEDS: MIRALAX *UNIT DOSE* 17GM PACKET PO STA (10:56)
[2024-02-11] MEDS: ONDANSETRON 4MG 2ML VIAL IV PRN (12:21)
[2024-02-11] MEDS: clonazePAM 0.5 MG TAB PO ONE (13:41)
[2024-02-11] MEDS: DICYCLOMINE 10 MG CAP PO PRN (16:40)
[2024-02-11] MEDS: MIRALAX *UNIT DOSE* 17GM PACKET PO SCH (21:00)
[2024-02-11] MEDS: BISACODYL 10MG SUPP PR SCH (21:08)
[2024-02-11] MEDS: SENOKOT S TAB PO SCH (21:08)
[2024-02-11] MEDS: QUEtiapine FUMARATE 25 MG TAB PO PRN (21:09)
[2024-02-11 22:35] LABS: POTASSIUM SERUM 3.8 MMOL/L (3.5-5.1)
[2024-02-12] VITALS (12 sets, daily range): BP systolic 107–143; BP diastolic 58–88; TEMP 97.8–98.1; O2SAT 95–100
[2024-02-12] MEDS: ACETAMINOPHEN *IV* 1,000 MG in IV 1 EA IV SCH (00:25)
[2024-02-12 05:07] LABS: BASO % 0.4 % (0.0-1.0); EOS # 0.2 10^3/uL (0.0-0.5); EOS % 3.6 % (0.0-3.0); HEMOGLOBIN 7.9 g/dl (12.0-15.5); LYMPH # 1.1 10^3/uL (1.5-5.0); LYMPH % 20.8 % (24.0-44.0); MEAN CORPUSCULAR HEMOGLOBIN 27.3 pg (27.0-33.0); MEAN CORPUSCULAR HGB CONC 32.9 g/dl (32.0-36.5); MONO # 0.3 10^3/uL (0.0-0.8); MONO % 5.5 % (2.0-8.0); NEUTROPHILS # 3.8 10^3/uL (1.5-8.5); NEUTROPHILS % 68.8 % (36.0-66.0); PLATELET COUNT, AUTOMATED 126 10^3/uL (150-450); RED BLOOD COUNT 2.89 10^6/uL (4.00-5.40); WHITE BLOOD COUNT 5.5 10^3/uL (4.0-10.0)
[2024-02-12 05:27] LABS: ALBUMIN 1.3 G/DL (3.2-5.2); CALCIUM LEVEL 6.8 MG/DL (8.5-10.1); CREATININE FOR GFR 1.15 MG/DL (0.55-1.30); MAGNESIUM LEVEL 1.8 MG/DL (1.8-2.4); POTASSIUM SERUM 3.5 MMOL/L (3.5-5.1)
[2024-02-12] MEDS: oxyCODONE 5MG TAB PO PRN (13:35)
[2024-02-13 05:50] VITALS: BP 132/95; TEMP 98.1; O2SAT 98
[2024-02-13 06:35] LABS: HEMATOCRIT 33.4 % (36.0-47.0); MEAN CORPUSCULAR HEMOGLOBIN 26.4 pg (27.0-33.0); MEAN CORPUSCULAR HGB CONC 31.1 g/dl (32.0-36.5); MEAN CORPUSCULAR VOLUME 84.8 fl (80.0-96.0); PLATELET COUNT, AUTOMATED 188 10^3/uL (150-450); RED BLOOD COUNT 3.94 10^6/uL (4.00-5.40); WHITE BLOOD COUNT 6.9 10^3/uL (4.0-10.0)
[2024-02-13 06:37] LABS: HEMOGLOBIN 10.4 g/dl (12.0-15.5)
[2024-02-13 06:59] LABS: ALBUMIN 1.8 G/DL (3.2-5.2); CALCIUM LEVEL 7.7 MG/DL (8.5-10.1); CREATININE FOR GFR 1.11 MG/DL (0.55-1.30); GLOMERULAR FILTRATION RATE 54.1 (>51); MAGNESIUM LEVEL 1.8 MG/DL (1.8-2.4)
[2024-02-13 08:05] VITALS: BP 154/101
[2024-02-13] MEDS: amLODIPine 5 MG TAB PO SCH (08:05)
[2024-02-13] MEDS: THIAMINE 100 MG TAB PO SCH (08:07)
[2024-02-13] MEDS: oxyCODONE 5MG TAB PO PRN (10:05)
[2024-02-13] MEDS: INSULIN LISPRO (NovoLOG) PER UNIT SC SCH ×2 (11:54→21:00)
[2024-02-13] MEDS: levETIRAcetam 250MG TABLET (KEPPRA) PO ONE (12:33)
[2024-02-13 14:00] VITALS: BP 153/96; TEMP 97.5; O2SAT 98
[2024-02-13 20:00] VITALS: BP 151/96; TEMP 98.6; O2SAT 99
[2024-02-13] MEDS: levETIRAcetam 250MG TABLET (KEPPRA) PO SCH (20:58)
[2024-02-13] MEDS: PREGABALIN 75 MG CAP(LYRICA) PO SCH (20:58)
[2024-02-13] MEDS: traZODone 50 MG TAB PO SCH (20:59)
[2024-02-14 04:00] VITALS: BP 145/93; TEMP 97.9; O2SAT 99
[2024-02-14] MEDS ORDERED: HYOSCYAMINE SULFATE 0.125 MG SUBL TABLET PO PRN (11:00)
[2024-02-14] MEDS: FENTANYL REMOVAL DOCUMENTATION MISC XX SCH (13:00)
[2024-02-14] MEDS: LORazepam 1 MG TAB PO PRN (15:57)
[2024-02-14] MEDS: MIRTAZAPINE 15 MG TAB PO SCH (21:34)
[2024-02-15] MEDS: ONDANSETRON 4MG ORAL DISINTEGRATING TAB PO PRN (15:57)
[2024-02-16] MEDS: LIDOCAINE 5% (LIDODERM) PATCH TD SCH (08:35)
[2024-02-17] MEDS: CALCIUM CARBONATE 500 MG CHEW U/D PO PRN (14:59)
[2024-02-18] MEDS: ACETAMINOPHEN TAB 650MG DOSE (2X325MG) PO PRN (01:26)
[2024-02-18] MEDS: HYDROmorphone 2 MG TAB PO PRN (10:58)
[2024-02-18 13:33] VITALS: BP 111/59
[2024-02-19] MEDS: HYDROmorphone 4MG TABLET PO PRN (00:29)
[2024-02-19] MEDS: ACETAMINOPHEN *IV* 1,000 MG in IV 1 EA IV ONE (00:32)
[2024-02-19] MEDS: ONDANSETRON 4MG 2ML VIAL IV PRN (10:36)
[2024-02-19] MEDS: HYDROmorphone HCL 2MG/ML 1ML VIAL IV PRN (10:36)
[2024-02-19] MEDS: HYDROMORPHONE HCL 0.5 MG/ 0.5 ML SYRINGE IV PRN (15:03)
[2024-02-23] MEDS ORDERED: MORPHINE 10MG/0.5ML ORAL CONCENTRATE SOLUTION U/D SL PRN (17:20)
[2024-02-23] MEDS: fentaNYL 25 MCG/HR PATCH TOP SCH (18:16)
[2024-02-23] MEDS: oxyCODONE 5MG TAB PO PRN (20:06)
[2024-02-24] MEDS: oxyCODONE 5MG TAB PO PRN (10:10)
[2024-02-26] MEDS: FENTANYL REMOVAL DOCUMENTATION MISC XX SCH (18:28)
[2024-02-29 02:00] VITALS: O2SAT 16
[2024-02-29] MEDS: MORPHINE 10MG/0.5ML ORAL CONCENTRATE SOLUTION U/D SL PRN (09:49)
[2024-03-01] MEDS ORDERED: MORP1SOL5 PO (07:23)
[2024-03-01] MEDS ORDERED: ATIV1TAB10 PO (07:23)
[2024-03-01] MEDS ORDERED: HYOS125TA PO (07:23)
== END 2024-03-01 12:20 | disposition hospice, home (50) | DRG 247 ==
LOC: M ED 20:14 → M ED INP 02-08 03:27 → M ICU 02-08 16:45 → M MSPAV 02-12 11:12
PROVIDERS: ADMIT Internal Medicine; ATTEND Student in an Organized Health Care Education/Training Program
PROC: 5A1945Z Respiratory Ventilation, 24-96 Consecutive Hours (ICD-10-PCS; 2024-02-08)
PROC: 0BH17EZ Insertion of Endotracheal Airway into Trachea, Via Natural or Artificial Opening (ICD-10-PCS; 2024-02-08)
PROC: 02HV33Z Insertion of Infusion Device into Superior Vena Cava, Percutaneous Approach (ICD-10-PCS; 2024-02-08)
PROC: B246ZZZ Ultrasonography of Right and Left Heart (ICD-10-PCS; 2024-02-12)
PROC: 0W9G3ZZ Drainage of Peritoneal Cavity, Percutaneous Approach (ICD-10-PCS; principal; 2024-02-18 12:00)
DX: K56.600 Partial intestinal obstruction, unspecified as to cause (principal); J96.01 Acute respiratory failure with hypoxia; R18.0 Malignant ascites; R56.9 Unspecified convulsions; C78.6 Secondary malignant neoplasm of retroperitoneum and peritoneum; N13.30 Unspecified hydronephrosis; E83.42 Hypomagnesemia; E83.39 Other disorders of phosphorus metabolism; N18.30 Chronic kidney disease, stage 3 unspecified; D63.8 Anemia in other chronic diseases classified elsewhere; Z66 Do not resuscitate; I12.9 Hypertensive chronic kidney disease with stage 1 through stage 4 chronic kidney disease, or unspecified chronic kidney disease; E78.5 Hyperlipidemia, unspecified; E11.9 Type 2 diabetes mellitus without complications; Z96.0 Presence of urogenital implants; Z92.3 Personal history of irradiation; Z90.49 Acquired absence of other specified parts of digestive tract; Z79.899 Other long term (current) drug therapy; Z86.73 Personal history of transient ischemic attack (TIA), and cerebral infarction without residual deficits; E87.6 Hypokalemia; Z87.891 Personal history of nicotine dependence; I46.9 Cardiac arrest, cause unspecified; K56.7 Ileus, unspecified; E87.4 Mixed disorder of acid-base balance